=== PATIENT | male | born 1935 | race Caucasian/White ===

== ENCOUNTER → 2016-12-12 | Outpatient (CLI) | payer MEDICARE ==
--- NOTE | 2016-12-12 12:16 | MR ---
EXAMINATION TYPE: MR knee RT wo con DATE OF EXAM: 12/12/2016 COMPARISON: Plain film 10/23/2016 HISTORY: rt knee pain TECHNIQUE: Multiplanar, multisequence imaging of the right knee is performed without IV contrast. FINDINGS: MEDIAL MENISCUS: Posterior horn of the medial meniscus shows abnormal increased signal which is somew hat diffuse, stellate increased signal extends to the articular surface compatible with complex tear. LATERAL MENISCUS: Anterior and posterior horns are intact without tear. CRUCIATE LIGAMENTS: Anterior cruciate ligament shows abnormal thickening and associated fluid signal suggestive of possible arterial degenerative tear or possibly even ganglion formation COLLATERAL LIGAMENTS: The medial collateral ligament and lateral collateral ligament complex are inta ct and unremarkable. EXTENSOR MECHANISM: Visualized quadriceps and patellar tendons are intact. EFFUSION: No significant suprapatellar joint effusion. POPLITEAL CYST: A small semimembranosus gastrocnemius cyst is subcentimeter in size. TRICOMPARTMENT SPACES: There is joint space loss in the medial compartment. 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 Gra de 2 to grade III chondromalacia present in the lateral compartment and grade II chondromalacia poste rior patella. BONE MARROW SIGNAL: Subchondral geode formation, reactive marrow edema present in the proximal medial tibia greater than the medial femoral condyle OTHER: No additional significant abnormality is appreciated. IMPRESSION: Osteoarthritis. Complex tear posterior horn medial meniscus may be degenerative. Findings in the ante rior cruciate ligament suggests at least a partial tear, there is abnormal thickening, possible gangl ion cyst formation.
== END ==
LOC: RADMRIMAIN 09:58
PROVIDERS: ATTEND Orthopaedic Surgery
DX: M23.221 Derangement of posterior horn of medial meniscus due to old tear or injury, right knee (principal)

== ENCOUNTER 2017-05-08 14:38 | Emergency (ER) | payer MEDICARE ==
[2017-05-08 14:57] VITALS: BP 154/72; PULSE 63; TEMP 96.9
--- NOTE | 2017-05-08 16:41 | ED ---
General Adult HPI - General Chief complaint: Skin/Abscess/Foreign Body Stated complaint: Poss infection Braun/Post Op Time Seen by Provider: 05/08/17 16:01 Source: patient, RN notes reviewed Mode of arrival: ambulatory Limitations: no limitations - History of Present Illness Initial comments: Patient is 82-year-old male who presents emergency room today with a chief complaint of possible infection to right lower leg. 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 He does admit that over the last 2 days she's noticed some redness and swelling and some increased pain to the area. Patient does mother has a follow-up coming up in 3 days but thought that he should not wait till then to have it checked. Patient denies any other complaints or symptoms at this time. Patient denies any recent fever, chills, shortness of breath, chest pain, back pain, abdominal pain, nausea or vomiting, numbness or tingling, dysuria or hematuria, constipation or diarrhea, headaches or visual changes, or any other complaints. - Related Data Home Medications Medication Instructions Recorded Confirmed Atorvastatin [Lipitor] 80 mg PO HS 05/08/17 05/08/17 Chromium Picolinate 200 mcg PO DAILY 05/08/17 05/08/17 Empagliflozin [Jardiance] 10 mg PO DAILY 05/08/17 05/08/17 Finasteride [Proscar] 5 mg PO DAILY 05/08/17 05/08/17 Glimepiride [Amaryl] 2 mg PO BID 05/08/17 05/08/17 Hydrochlorothiazide 12.5 mg PO DAILY 05/08/17 05/08/17 Insulin Glargine,Hum.rec.anlog 28 unit SQ HS 05/08/17 05/08/17 [Lantus Solostar] Mupirocin 2% Oint [Bactroban 2% 1 applic TOPICAL BID 05/08/17 05/08/17 Oint] Silodosin [Rapaflo] 8 mg PO DAILY 05/08/17 05/08/17 Previous Rx's Medication Instructions Recorded Cephalexin [Keflex] 500 mg PO Q12HR 10 Days cap 05/08/17 Allergies Allergy/AdvReac Type Severity Reaction Status Date / Time lisinopril AdvReac Cough Verified 05/08/17 15:51 metformin AdvReac Nausea & Verified 05/08/17 15:51 Vomiting & Diarrhea Review of Systems ROS Statement: Those systems with pertinent positive or pertinent negative responses have been documented in the HPI. ROS Other: All systems not noted in ROS Statement are negative. Past Medical History Past Medical History: Cancer, COPD, CVA/TIA, Diabetes Mellitus, Hyperlipidemia, Hypertension, Osteoarthritis (OA) Additional Past Medical History / Comment(s): squamous cell cancer on right braun , stroke 2014, IBS History of Any Multi-Drug Resistant Organisms: None Reported Additional Past Surgical History / Comment(s): squamous cell cancer removal right braun, cataracts Past Psychological History: No Psychological Hx Reported Smoking Status: Former smoker Past Alcohol Use History: Rare Past Drug Use History: None Reported General Exam - General Exam Comments Initial Comments: General: The patient is awake and alert, in no distress, and does not appear acutely ill. Eye: Pupils are equal, round and reactive to light, extra-ocular movements are intact. No nystagmus. There is normal conjunctiva bilaterally. No signs of icterus. Ears, nose, mouth and throat: There are moist mucous membranes and no oral lesions. Neck: The neck is supple, there is no tenderness or JVD. Cardiovascular: There is a regular rate and rhythm. No murmur, rub or gallop is appreciated. Respiratory: Lungs are clear to auscultation, respirations are non-labored, breath sounds are equal. No wheezes, stridor, rales, or rhonchi. Musculoskeletal: Normal ROM, no tenderness. Strength 5/5. Sensation intact. Pulses equal bilaterally 2+. Neurological: A&O x 3. CN II-XII intact, There are no obvious motor or sensory deficits. Coordination appears grossly intact. Speech is normal. Skin: She does have a circular ulceration to the right lower braun. There is some local redness erythema surrounding this area. There is some faint redness coming up more proximally from this area. There is increased warmth and mild tenderness on exam. Psychiatric: Cooperative, appropriate mood & affect, normal judgment. Limitations: no limitations Course Vital Signs 05/08/17 14:52 Temperature 96.9 F L Pulse Rate 63 Respiratory 18 Rate Blood Pressure 154/72 O2 Sat by Pulse 95 Oximetry Medical Decision Making - Medical Decision Making Signs and symptoms of increasing worsening of infection were discussed in length with patient and his at bedside. At this time he saw on any oral antibiotic only a topical. He will be started on an oral antibiotic of Keflex to cover for a cellulitis. Advised close follow-up the family doctor over the next 2 days. Advised to return to the emergency room symptoms increase worsen or for any other concerns. Disposition Clinical Impression: Cellulitis Disposition: HOME SELF-CARE Condition: Good Instructions: Cellulitis (ED) Additional Instructions: Please use medication as discussed. Please follow-up with family doctor in the next 2 days of symptoms have not improved. Please return to emergency room if the symptoms increase or worsen or for any other concerns. Prescriptions: Cephalexin [Keflex] 500 mg PO Q12HR 10 Days cap Referrals: None,Stated [Primary Care Provider] - 1-2 days Time of Disposition: 16:40
[2017-05-08 17:02] VITALS: RESP 17
== END 2017-05-08 17:00 | disposition home or self-care (01) ==
LOC: EC 14:38
DX: L03.115 Cellulitis of right lower limb (principal); E11.9 Type 2 diabetes mellitus without complications; E78.5 Hyperlipidemia, unspecified; I10 Essential (primary) hypertension; M19.90 Unspecified osteoarthritis, unspecified site; K58.9 Irritable bowel syndrome, unspecified; J44.9 Chronic obstructive pulmonary disease, unspecified; Z86.73 Personal history of transient ischemic attack (TIA), and cerebral infarction without residual deficits; Z85.828 Personal history of other malignant neoplasm of skin; Z87.891 Personal history of nicotine dependence; Z79.4 Long term (current) use of insulin; Z79.899 Other long term (current) drug therapy; Z88.8 Allergy status to other drugs, medicaments and biological substances; Z98.890 Other specified postprocedural states
CPT/HCPCS: 99283

== ENCOUNTER 2019-04-24 00:09 | Emergency (ER) | payer MEDICARE ==
[2019-04-24 00:23] VITALS: PULSE 56; RESP 18; TEMP 97.9
--- NOTE | 2019-04-24 00:28 | ED ---
Recheck HPI - General Chief Complaint: Recheck/Abnormal Lab/Rx Stated Complaint: NOT FEELING WELL Time Seen by Provider: 04/24/19 00:27 Source: patient Mode of arrival: ambulatory Limitations: no limitations - History of Present Illness Initial Comments: Sreekanth is a pleasant 84 yo male who presents to the ER today for blood pressure check. Patient was previously on Losartan 25mg PO daily and HCTZ 12.5 PO daily, however his blood pressures were running low so last week his PCP discontinued his HCTZ. Patient and have been monitoring his BP 2x daily since then. Patient and report that his BP has been increasing over the past week, this evening his BP was 189/80 on their home cuff, they contacted the nurse call line who advised them to come to the ER. Patient denies any symptoms, he denies CP, SOB, Headache, Vision change. He did not take his evening dose of Losartan. - Related Data Home Medications Medication Instructions Recorded Confirmed Atorvastatin [Lipitor] 80 mg PO HS 05/08/17 05/08/17 Chromium Picolinate 200 mcg PO DAILY 05/08/17 05/08/17 Empagliflozin [Jardiance] 10 mg PO DAILY 05/08/17 05/08/17 Finasteride [Proscar] 5 mg PO DAILY 05/08/17 05/08/17 Glimepiride [Amaryl] 2 mg PO BID 05/08/17 05/08/17 Hydrochlorothiazide 12.5 mg PO DAILY 05/08/17 05/08/17 Insulin Glargine,Hum.rec.anlog 28 unit SQ HS 05/08/17 05/08/17 [Lantus Solostar] Mupirocin 2% Oint [Bactroban 2% 1 applic TOPICAL BID 05/08/17 05/08/17 Oint] Silodosin [Rapaflo] 8 mg PO DAILY 05/08/17 05/08/17 Previous Rx's Medication Instructions Recorded Cephalexin [Keflex] 500 mg PO Q12HR 10 Days cap 05/08/17 Allergies Allergy/AdvReac Type Severity Reaction Status Date / Time lisinopril AdvReac Cough Verified 04/24/19 00:22 metformin AdvReac Nausea & Verified 04/24/19 00:22 Vomiting & Diarrhea Review of Systems ROS Statement: Those systems with pertinent positive or pertinent negative responses have been documented in the HPI. ROS Other: All systems not noted in ROS Statement are negative. Past Medical History Past Medical History: Cancer, COPD, CVA/TIA, Diabetes Mellitus, Hyperlipidemia, Hypertension, Osteoarthritis (OA) Additional Past Medical History / Comment(s): squamous cell cancer on right braun, stroke 2013, IBS History of Any Multi-Drug Resistant Organisms: None Reported Additional Past Surgical History / Comment(s): squamous cell cancer removal right braun, cataracts Past Psychological History: No Psychological Hx Reported Smoking Status: Former smoker Past Alcohol Use History: Rare Past Drug Use History: None Reported General Exam Limitations: no limitations Head exam: Present: atraumatic, normocephalic Eye exam: Present: normal appearance, PERRL ENT exam: Present: normal exam Neck exam: Present: normal inspection Respiratory exam: Present: normal lung sounds bilaterally. Absent: respiratory distress, wheezes, rales Cardiovascular Exam: Present: regular rate, normal rhythm GI/Abdominal exam: Present: soft. Absent: distended Rectal exam: Present: deferred Extremities exam: Present: normal inspection, full ROM Back exam: Present: normal inspection Neurological exam: Present: alert, oriented X3, CN II-XII intact, normal gait Psychiatric exam: Present: normal affect, normal mood Skin exam: Present: warm, dry, intact Course Vital Signs 04/24/19 04/24/19 00:19 00:56 Temperature 97.9 F Pulse Rate 56 L Respiratory 18 Rate Blood Pressure 144/66 171/77 O2 Sat by Pulse 96 Oximetry Medical Decision Making - Medical Decision Making The patient was seen and evaluated, history obtained from patient and . Patient recently taken off medication, now has increasing asymptomatic BP BP on arrival has normalized, patient has not taken his nightly medication. Checked BP with patients home cuff and cuff at bedside, patient remains only mildly hypertensive. I recommended taking nightly medication, resuming HCTZ for the next 2 days and contact PCP thursday for further recommendations. Patient and agreeable to this plan, plan was written in discharge instruction. All questions pertaining to care were answered, return parameters discussed in detail, patient remained asymptomatic and was discharged home in stable condition. Disposition Clinical Impression: HTN (hypertension) Disposition: HOME SELF-CARE Condition: Stable Additional Instructions: Take your nightly medications before going to bed tonight Resume your HCTZ tomorrow morning Call your primary doctor Thursday to discuss taking your HCTZ Return to the ER if your BP is >180/110 or you experience any headache, vision change, chest pain, shortness of breath or any new or concerning symptoms Is patient prescribed a controlled substance at d/c from ED?: No Referrals: Nonstaff,Physician [Primary Care Provider] - 1-2 days
[2019-04-24 00:58] VITALS: BP 171/77
== END 2019-04-24 00:56 | disposition home or self-care (01) ==
LOC: EC 00:09 → SUPCPDRO 00:09 → EC 00:56
DX: I10 Essential (primary) hypertension (principal); E78.5 Hyperlipidemia, unspecified; E11.9 Type 2 diabetes mellitus without complications; J44.9 Chronic obstructive pulmonary disease, unspecified; Z79.899 Other long term (current) drug therapy; Z79.4 Long term (current) use of insulin; Z88.8 Allergy status to other drugs, medicaments and biological substances; Z87.891 Personal history of nicotine dependence; Z86.73 Personal history of transient ischemic attack (TIA), and cerebral infarction without residual deficits
CPT/HCPCS: 99283

== ENCOUNTER 2020-03-30 13:55 | Emergency (ER) | payer MEDICARE ==
[2020-03-30 14:12] VITALS: TEMP 98.2
[2020-03-30] MEDS ORDERED: SODIUM CHLORIDE 0.9% 500 ML 500 ML IV ONE (14:32)
--- NOTE | 2020-03-30 14:45 | ED ---
General Adult HPI - General Chief complaint: Recheck/Abnormal Lab/Rx Stated complaint: Abn Labs Time Seen by Provider: 03/30/20 14:28 Source: patient, family Mode of arrival: wheelchair Limitations: physical limitation - History of Present Illness Initial comments: 85-year-old male patient with past medical history significant for hypertension, hyperlipidemia, diabetes, CVA, COPD, currently diagnosed with lung cancer receiving radiation presents to the emergency department today after having abnormal labs. He had blood drawn yesterday and had a result of potassium at 6.9. His physician sent him here for lab redraw and further evaluation. Patient states he is feeling well. Denies any chest pain, shortness of breath, palpitations, or irregular heartbeat. Denies any muscle cramping or weakness. Denies ever having issues with potassium in the past. Patient denies any recent rash, fever, chills, cough, abdominal pain, nausea, vomiting, diarrhea, constipation, back pain, numbness, tingling, dizziness, hematuria, dysuria, urinary urgency, urinary frequency, headache, visual changes, or any other complaints. - Related Data Home Medications Medication Instructions Recorded Confirmed Atorvastatin [Lipitor] 80 mg PO HS 05/08/17 05/08/17 Chromium Picolinate 200 mcg PO DAILY 05/08/17 05/08/17 Empagliflozin [Jardiance] 10 mg PO DAILY 05/08/17 05/08/17 Finasteride [Proscar] 5 mg PO DAILY 05/08/17 05/08/17 Glimepiride [Amaryl] 2 mg PO BID 05/08/17 05/08/17 Hydrochlorothiazide 12.5 mg PO DAILY 05/08/17 05/08/17 [hydroCHLOROthiazide] Insulin Glargine,Hum.rec.anlog 28 unit SQ HS 05/08/17 05/08/17 [Lantus Solostar] Mupirocin 2% Oint [Bactroban 2% 1 applic TOPICAL BID 05/08/17 05/08/17 Oint] Silodosin [Rapaflo] 8 mg PO DAILY 05/08/17 05/08/17 Previous Rx's Medication Instructions Recorded Cephalexin [Keflex] 500 mg PO Q12HR 10 Days cap 05/08/17 Allergies Allergy/AdvReac Type Severity Reaction Status Date / Time lisinopril AdvReac Cough Verified 03/30/20 14:12 metformin AdvReac Nausea & Verified 03/30/20 14:12 Vomiting & Diarrhea Review of Systems ROS Statement: Those systems with pertinent positive or pertinent negative responses have been documented in the HPI. ROS Other: All systems not noted in ROS Statement are negative. Past Medical History Past Medical History: Cancer, COPD, CVA/TIA, Diabetes Mellitus, Hyperlipidemia, Hypertension, Osteoarthritis (OA) Additional Past Medical History / Comment(s): squamous cell cancer on right braun, stroke 2014, IBS History of Any Multi-Drug Resistant Organisms: None Reported Additional Past Surgical History / Comment(s): squamous cell cancer removal right braun, cataracts Past Psychological History: No Psychological Hx Reported Smoking Status: Never smoker Past Alcohol Use History: Rare Past Drug Use History: None Reported General Exam Limitations: physical limitation General appearance: alert, in no apparent distress, other (Physical well- developed, well-nourished adult male patient in no acute distress. Vital signs upon presentation are temperature 98.2F, pulse 80, respirations 20, blood pressure 98/56, pulse ox 97% on room air.) Respiratory exam: Present: normal lung sounds bilaterally. Absent: respiratory distress, wheezes, rales, rhonchi, stridor Cardiovascular Exam: Present: regular rate, normal rhythm, normal heart sounds. Absent: systolic murmur, diastolic murmur, rubs, gallop, clicks GI/Abdominal exam: Present: soft, normal bowel sounds. Absent: distended, tenderness, guarding, rebound, rigid Neurological exam: Present: alert, oriented X3, CN II-XII intact Psychiatric exam: Present: normal affect, normal mood Skin exam: Present: warm, dry, intact, normal color, rash (There is a scabbed rash noted over the upper back, the chest, no surrounding erythema, no purulent drainage.) Course Vital Signs 03/30/20 03/30/20 03/30/20 14:09 15:04 15:46 Temperature 98.2 F 98.2 F Pulse Rate 80 69 69 Respiratory 20 18 18 Rate Blood Pressure 98/56 109/61 116/69 O2 Sat by Pulse 97 96 96 Oximetry EKG Findings - EKG Comments: EKG Findings:: EKG obtained at 1442 shows 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 Ventricular rate is 70, P return of a 184, QRS duration 92, QT 394, QTC 425. No evidence of ST elevation or depression. No previous EKGs available for comparison. Medical Decision Making - Medical Decision Making 85-year-old male patient with current diagnosis of lung cancer receiving radiation had outpatient labs performed yesterday and had elevated potassium level at 6.9. He was sent here for redraw. We did draw his blood, his potassium level today is 3.4, all other labs are unremarkable. He'll be discharged to follow with his current home care regimen instructed to follow-up with his primary care physician for recheck in 1-2 days. Return parameters were discussed in detail. He verbalizes understanding and agrees with this plan. - Lab Data Result diagrams: 03/30/20 14:40 03/30/20 14:40 Lab Results 03/30/20 03/30/20 Range/Units 14:40 14:40 WBC 9.9 (3.8-10.6) k/uL RBC 4.61 (4.30-5.90) m/uL Hgb 13.6 (13.0-17.5) gm/dL Hct 41.0 (39.0-53.0) % MCV 88.9 (80.0-100.0) fL MCH 29.5 (25.0-35.0) pg MCHC 33.2 (31.0-37.0) g/dL RDW 14.4 (11.5-15.5) % Plt Count 296 (150-450) k/uL Neutrophils % 77 % Lymphocytes % 9 % Monocytes % 8 % Eosinophils % 4 % Basophils % 0 % Neutrophils # 7.6 (1.3-7.7) k/uL Lymphocytes # 0.9 L (1.0-4.8) k/uL Monocytes # 0.8 (0-1.0) k/uL Eosinophils # 0.4 (0-0.7) k/uL Basophils # 0.0 (0-0.2) k/uL Sodium 137 (137-145) mmol/L Potassium 4.3 (3.5-5.1) mmol/L Chloride 106 (98-107) mmol/L Carbon Dioxide 25 (22-30) mmol/L Anion Gap 6 mmol/L BUN 17 (9-20) mg/dL Creatinine 0.96 (0.66-1.25) mg/dL Est GFR (CKD-EPI)AfAm 84 (>60 ml/min/1.73 sqM) Est GFR (CKD-EPI)NonAf 73 (>60 ml/min/1.73 sqM) Glucose 126 H (74-99) mg/dL Calcium 8.5 (8.4-10.2) mg/dL Magnesium 2.2 (1.6-2.3) mg/dL Total Bilirubin 0.5 (0.2-1.3) mg/dL AST 44 (17-59) U/L ALT 43 (4-49) U/L Alkaline Phosphatase 158 H (38-126) U/L Total Protein 5.9 L (6.3-8.2) g/dL Albumin 2.6 L (3.5-5.0) g/dL Disposition Clinical Impression: Feared condition not demonstrated Disposition: HOME SELF-CARE Condition: Good Additional Instructions: Follow up with your primary care physician for recheck in 1-2 days. Return to the emergency department for any new, worsening, or concerning symptoms. Is patient prescribed a controlled substance at d/c from ED?: No Referrals: Nonstaff,Physician [Primary Care Provider] - 1-2 days Time of Disposition: 15:20
[2020-03-30 14:50] LABS: Basophils % (A) 0 %; Eosinophils # (A) 0.4 k/uL (0-0.7); Eosinophils % (A) 4 %; HGB 13.6 gm/dL (13.0-17.5); Lymphocytes # (A) 0.9 k/uL (1.0-4.8); Lymphocytes % (A) 9 %; MCH 29.5 pg (25.0-35.0); MCHC 33.2 g/dL (31.0-37.0); MCV 88.9 fL (80.0-100.0); Monocytes # (A) 0.8 k/uL (0-1.0); Monocytes % (A) 8 %; Neutrophils # (A) 7.6 k/uL (1.3-7.7); Neutrophils % (A) 77 %; Platelet Count 296 k/uL (150-450); RBC 4.61 m/uL (4.30-5.90); RDW 14.4 % (11.5-15.5); WBC 9.9 k/uL (3.8-10.6)
[2020-03-30 14:58] LABS: Albumin 2.6 g/dL (3.5-5.0); Calcium 8.5 mg/dL (8.4-10.2); Magnesium 2.2 mg/dL (1.6-2.3); Potassium 4.3 mmol/L (3.5-5.1); Total Bilirubin 0.5 mg/dL (0.2-1.3); Total Protein 5.9 g/dL (6.3-8.2)
[2020-03-30 15:05] VITALS: PULSE 69; RESP 18
[2020-03-30 15:46] VITALS: BP 116/69
== END 2020-03-30 15:48 | disposition home or self-care (01) ==
LOC: EC 13:55
DX: Z71.1 Person with feared health complaint in whom no diagnosis is made (principal); E11.36 Type 2 diabetes mellitus with diabetic cataract; I10 Essential (primary) hypertension; E78.5 Hyperlipidemia, unspecified; J44.9 Chronic obstructive pulmonary disease, unspecified; Z79.4 Long term (current) use of insulin; Z79.899 Other long term (current) drug therapy; Z88.8 Allergy status to other drugs, medicaments and biological substances; Z86.73 Personal history of transient ischemic attack (TIA), and cerebral infarction without residual deficits
CPT/HCPCS: 36415; 80048; 80053; 80076; 83735; 85025; 93005; 96360; 99283

== ENCOUNTER 2020-04-27 00:40 | Inpatient (IN) | payer MEDICARE ==
[2020-04-27] MEDS ORDERED: ADENOSINE 3 MG/ML 2 ML VIAL IVP STA (00:48)
--- NOTE | 2020-04-27 00:49 | ED ---
Arrhythmia/Palpitations HPI - General Chief Complaint: Arrhythmia/Palpitations Stated Complaint: SVT Time Seen by Provider: 04/27/20 00:48 Source: patient, EMS Mode of arrival: EMS Limitations: no limitations - History of Present Illness Initial Comments: this patient is an 85-year-old man brought to be evaluated for tachycardia. The patient not able to give much history related to the complaint, he states that his called EMS. The EMS personnel report that they were called becausehis blood pressure been checked at home and it was low, 80/50. The patient denies complaints stating that he feelsokay. He denies chest or abdominal pain, nodysp gladys, no nausea or vomiting. EMS found the patient to be in what appeared to be SVT with a rate approximately 160. They did give him 2 doses of adenosine, 6 mg, then 12 mg, which did briefly slow the rhythm but it resumed SVT. -: unknown Associated Symptoms: denies other symptoms Treatments Prior to Arrival: adenosine - Related Data Home Medications Medication Instructions Recorded Confirmed Atorvastatin [Lipitor] 80 mg PO HS 05/08/17 05/08/17 Chromium Picolinate 200 mcg PO DAILY 05/08/17 05/08/17 Empagliflozin [Jardiance] 10 mg PO DAILY 05/08/17 05/08/17 Finasteride [Proscar] 5 mg PO DAILY 05/08/17 05/08/17 Glimepiride [Amaryl] 2 mg PO BID 05/08/17 05/08/17 Hydrochlorothiazide 12.5 mg PO DAILY 05/08/17 05/08/17 [hydroCHLOROthiazide] Insulin Glargine,Hum.rec.anlog 28 unit SQ HS 05/08/17 05/08/17 [Lantus Solostar] Mupirocin 2% Oint [Bactroban 2% 1 applic TOPICAL BID 05/08/17 05/08/17 Oint] Silodosin [Rapaflo] 8 mg PO DAILY 05/08/17 05/08/17 Previous Rx's Medication Instructions Recorded Cephalexin [Keflex] 500 mg PO Q12HR 10 Days cap 05/08/17 Allergies Allergy/AdvReac Type Severity Reaction Status Date / Time lisinopril AdvReac Cough Verified 03/30/20 14:12 metformin AdvReac Nausea & Verified 03/30/20 14:12 Vomiting & Diarrhea Review of Systems ROS Statement: Those systems with pertinent positive or pertinent negative responses have been documented in the HPI. ROS Other: All systems not noted in ROS Statement are negative. 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 Absent: scleral icterus, conjunctival injection ENT exam: Present: mucous membranes dry Neck exam: Present: normal inspection Respiratory exam: Present: normal lung sounds bilaterally. Absent: respiratory distress, wheezes, rales, rhonchi, stridor Cardiovascular Exam: Present: tachycardia, normal heart sounds. Absent: systolic murmur, diastolic murmur, rubs, gallop GI/Abdominal exam: Present: soft. Absent: distended, tenderness, guarding, rebound, rigid, mass Extremities exam: Present: normal inspection, normal capillary refill. Absent: pedal edema, calf tenderness Back exam: Present: normal inspection. Absent: CVA tenderness (R), CVA tenderness (L) Neurological exam: Present: alert Skin exam: Present: warm, dry, intact, normal color. Absent: rash Course Vital Signs 04/27/20 04/27/20 04/27/20 00:41 00:53 00:58 Temperature 98.0 F Pulse Rate 160 H 145 H Pulse Rate [ 156 H Insurance Clerk ] Respiratory 16 18 Rate Blood Pressure 97/65 80/58 O2 Sat by Pulse 94 L 99 Oximetry 04/27/20 04/27/20 04/27/20 01:38 01:50 02:40 Temperature Pulse Rate 110 H 110 H 109 H Pulse Rate [ Insurance Clerk ] Respiratory 16 18 16 Rate Blood Pressure 90/67 113/73 87/61 O2 Sat by Pulse 100 96 Oximetry 04/27/20 03:10 Temperature Pulse Rate 96 Pulse Rate [ Insurance Clerk ] Respiratory 18 Rate Blood Pressure 112/69 O2 Sat by Pulse 97 Oximetry EKG Findings - EKG Results: EKG: interpreted by ERMD, normal QRS, normal ST/T EKG shows: tachycardia (supraventricular tachycardia rate 157) - Blocks, [place], Hypertrophy, ST Abn: QRS axis and voltage: left axis deviation (-30 to -90) Medical Decision Making - Medical Decision Making this patient is an 85-year-old man brought by EMS to be evaluated after he was found to have hypotension at home. 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 Had been found to be septic in March presumably due to pneumonia and also found to havepulmonary embolism at that time. The patient is currently maintained on Lovenox. Patient's SVT has resolved here after medication and fluids. Chest x-ray does reveal pattern that may be consistent with lung cancer versus possible infil trate. The patient has been coughing some thick sputum, per His , therefore will have dose of antibiotic and further workup. - Lab Data Result diagrams: 04/27/20 01:05 04/27/20 01:05 Lab Results 04/27/20 04/27/20 04/27/20 Range/Units 01:05 01:05 01:05 WBC 10.7 H (3.8-10.6) k/uL RBC 4.49 (4.30-5.90) m/uL Hgb 13.1 (13.0-17.5) gm/dL Hct 40.8 (39.0-53.0) % MCV 90.8 (80.0-100.0) fL MCH 29.1 (25.0-35.0) pg MCHC 32.1 (31.0-37.0) g/dL RDW 17.7 H (11.5-15.5) % Plt Count 323 (150-450) k/uL MPV 8.3 Neutrophils % 75 % Lymphocytes % 9 % Monocytes % 9 % Eosinophils % 4 % Basophils % 0 % Neutrophils # 8.0 H (1.3-7.7) k/uL Lymphocytes # 1.0 (1.0-4.8) k/uL Monocytes # 1.0 (0-1.0) k/uL Eosinophils # 0.4 (0-0.7) k/uL Basophils # 0.1 (0-0.2) k/uL Anisocytosis Slight PT 10.1 (9.0-12.0) sec INR 1.0 (<1.2) APTT 29.8 (22.0-30.0) sec Sodium 134 L (137-145) mmol/L Potassium 4.3 (3.5-5.1) mmol/L Chloride 107 (98-107) mmol/L Carbon Dioxide 21 L (22-30) mmol/L Anion Gap 6 mmol/L BUN 16 (9-20) mg/dL Creatinine 1.19 (0.66-1.25) mg/dL Est GFR (CKD-EPI)AfAm 65 (>60 ml/min/1.73 sqM) Est GFR (CKD-EPI)NonAf 56 (>60 ml/min/1.73 sqM) Glucose 204 H (74-99) mg/dL Calcium 8.3 L (8.4-10.2) mg/dL Magnesium 1.8 (1.6-2.3) mg/dL Total Bilirubin 0.6 (0.2-1.3) mg/dL AST 106 H (17-59) U/L ALT 180 H (4-49) U/L Alkaline Phosphatase 290 H (38-126) U/L Troponin I (0.000-0.034) ng/mL Total Protein 6.0 L (6.3-8.2) g/dL Albumin 2.8 L (3.5-5.0) g/dL TSH 7.410 H (0.465-4.680) mIU/L 04/27/20 Range/Units 01:05 WBC (3.8-10.6) k/uL RBC (4.30-5.90) m/uL Hgb (13.0-17.5) gm/dL Hct (39.0-53.0) % MCV (80.0-100.0) fL MCH (25.0-35.0) pg MCHC (31.0-37.0) g/dL RDW (11.5-15.5) % Plt Count (150-450) k/uL MPV Neutrophils % % Lymphocytes % % Monocytes % % Eosinophils % % Basophils % % Neutrophils # (1.3-7.7) k/uL Lymphocytes # (1.0-4.8) k/uL Monocytes # (0-1.0) k/uL Eosinophils # (0-0.7) k/uL Basophils # (0-0.2) k/uL Anisocytosis PT (9.0-12.0) sec INR (<1.2) APTT (22.0-30.0) sec Sodium (137-145) mmol/L Potassium (3.5-5.1) mmol/L Chloride (98-107) mmol/L Carbon Dioxide (22-30) mmol/L Anion Gap mmol/L BUN (9-20) mg/dL Creatinine (0.66-1.25) mg/dL Est GFR (CKD-EPI)AfAm (>60 ml/min/1.73 sqM) Est GFR (CKD-EPI)NonAf (>60 ml/min/1.73 sqM) Glucose (74-99) mg/dL Calcium (8.4-10.2) mg/dL Magnesium (1.6-2.3) mg/dL Total Bilirubin (0.2-1.3) mg/dL AST (17-59) U/L ALT (4-49) U/L Alkaline Phosphatase (38-126) U/L Troponin I 0.022 (0.000-0.034) ng/mL Total Protein (6.3-8.2) g/dL Albumin (3.5-5.0) g/dL TSH (0.465-4.680) mIU/L Disposition Clinical Impression: Supraventricular tachycardia, Lung cancer Narrative: suspected pneumonia Disposition: ADMITTED IP TO THIS HOSP Condition: Fair Referrals: Nonstaff,Physician [Primary Care Provider] - 1-2 days
[2020-04-27] MEDS ORDERED: LORazepam 2 MG/ML INJ IV STA (00:58)
[2020-04-27] MEDS ORDERED: SODIUM CHLORIDE 0.9% 500 ML 500 ML IV STA (00:58)
--- NOTE | 2020-04-27 01:31 | XR ---
EXAM: XR Chest, 1 View CLINICAL HISTORY: ITS.REASON XR Reason: dysrhythmia TECHNIQUE: Frontal view of the chest. COMPARISON: No relevant prior studies available. FINDINGS: Lungs: Diffuse airspace opacities concerning for an infectious process. Pleural space: Probable small bilateral pleural effusions. Heart: Unremarkable. Mediastinum: Unremarkable. Bones/joints: Unremarkable. IMPRESSION: 1. Diffuse airspace opacities concerning for an infectious process. 2. Probable small bilateral pleural effusions.
[2020-04-27 01:34] LABS: Albumin 2.8 g/dL (3.5-5.0); Calcium 8.3 mg/dL (8.4-10.2); Magnesium 1.8 mg/dL (1.6-2.3); Potassium 4.3 mmol/L (3.5-5.1); Total Bilirubin 0.6 mg/dL (0.2-1.3)
[2020-04-27 01:36] LABS: Partial Thromboplastin Time 29.8 sec (22.0-30.0); Prothrombin Time 10.1 sec (9.0-12.0)
[2020-04-27] MEDS ORDERED: PIPERACILLIN-TAZOBACTAM 3.375 GM in SODIUM CHLORIDE 0.9% 100 ML IVPB STA (01:36)
[2020-04-27 01:37] LABS: Anisocytosis Slight; Basophils # (A) 0.1 k/uL (0-0.2); Basophils % (A) 0 %; Eosinophils # (A) 0.4 k/uL (0-0.7); Eosinophils % (A) 4 %; HCT 40.8 % (39.0-53.0); HGB 13.1 gm/dL (13.0-17.5); Lymphocytes % (A) 9 %; MCH 29.1 pg (25.0-35.0); MCHC 32.1 g/dL (31.0-37.0); MCV 90.8 fL (80.0-100.0); Mean Platelet Volume 8.3; Monocytes % (A) 9 %; Neutrophils % (A) 75 %; Platelet Count 323 k/uL (150-450); RBC 4.49 m/uL (4.30-5.90); RDW 17.7 % (11.5-15.5); WBC 10.7 k/uL (3.8-10.6)
[2020-04-27] MEDS ORDERED: PNEUMONIA PROTOCOL UTILIZED 1 EACH MISC PO PRN (03:00)
[2020-04-27] MEDS: ENOXAPARIN 80 MG/0.8 ML SYRINGE SQ SCH ×2 (04:18→17:48)
[2020-04-27 06:20] LABS: Appearance,Urine Clear (Clear); Bilirubin,Urine Negative (Negative); Blood,Urine Trace (Negative); Color,Urine Yellow; Glucose,Urine (UA) Negative (Negative); Hyaline Casts,Urine 14 /lpf (0-2); Ketones,Urine Negative (Negative); Leukocyte Esterase,Urine Negative (Negative); Mucus,Urine Rare /hpf; Nitrite,Urine Negative (Negative); Protein,Urine Negative (Negative); RBC,Urine 1 /hpf (0-5); Specific Gravity,Urine 1.016 (1.001-1.035); Urobilinogen,Urine <2.0 mg/dL (<2.0); WBC,Urine 1 /hpf (0-5)
--- NOTE | 2020-04-27 06:47 | P.HPIM ---
History of Present Illness H&P Date: 04/27/20 Chief Complaint: hypotension, SVT 85 year old male with diabetes, hypertension Patient is a poor historian due to memory issues. Family is not available at this time for further history taking. History obtained by talking to the patient and reviewing medical records and talking to the ER doctor. Seems like the patient was at home at his baseline status of health has been complaining of some episodes of dizziness over the past few days however today while checking his blood pressure was found to be low with systolic in the 80s for which the called EMS who found that the patient was with tachycardia and brought him to the hospital for evaluation EKG showed SVT he was given 2 doses of adenosine and was converted to sinus rhythm. Otherwise. Patient currently denies any dizziness lightheadedness denies any chest pain or trouble breathing he denies any fevers or chills. He does not recall recent hospitalization for pneumonia which the as mentioned, as patient was admitted for sepsis with pneumonia about a month ago to [facility] where he normally gets his care. There is no report of any hemoptysis however he is currently having some mild cough productive of greenish thick sputum. Patient also been diagnosed recently with PE and he is currently on Lovenox he denies any GI bleeding. Denies any abdominal pain nausea or vomiting He also mentions some left hip discomfort upon ambulation denies any trauma falls or injuries to the hip. Patient chest x-ray showed some infiltrates could be related to cancer however pneumonia could not be ruled out patient was given a dose of antibiotic in the ED and was admitted for further care and monitoring Blood work showed slightly elevated white count with left shift and, elevated TSH with elevated liver enzymes The patient is talkative seems to be in very good spirit currently denies any complaints Review of Systems Pertinent positives as noted in HPI. 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, stroke 2014, IBS History of Any Multi-Drug Resistant Organisms: None Reported Additional Past Surgical History / Comment(s): squamous cell cancer removal right braun, cataracts Past Psychological History: No Psychological Hx Reported Smoking Status: Never smoker Past Alcohol Use History: Rare Past Drug Use History: None Reported Medications and Allergies Home Medications Medication Instructions Recorded Confirmed Type Atorvastatin [Lipitor] 80 mg PO HS 05/08/17 05/08/17 History Finasteride [Proscar] 5 mg PO DAILY 05/08/17 05/08/17 History Insulin Glargine,Hum.rec.anlog 28 unit SQ HS 05/08/17 05/08/17 History [Lantus Solostar] Albuterol Inhaler [Ventolin Hfa 2 puff INHALATION RT-Q4H PRN 04/27/20 04/27/20 History Inhaler] Aspirin EC [Ecotrin Low Dose] 81 mg PO DAILY 04/27/20 04/27/20 History Benzonatate [Tessalon Perles] 100 mg PO TID PRN 04/27/20 04/27/20 History Cholecalciferol [Vitamin D3] 400 unit PO DAILY 04/27/20 04/27/20 History Enoxaparin [Lovenox] 80 mg SQ Q12H 04/27/20 04/27/20 History Galantamine HBr [Razadyne ER] 24 mg PO W/BRKFST 04/27/20 04/27/20 History Multivit-Min/FA/Lycopen/Lutein 1 tab PO DAILY 04/27/20 04/27/20 History [Centrum Silver Tablet] Tiotropium 18 Mcg/Puff [Spiriva] 2 cap INHALATION RT-DAILY 04/27/20 04/27/20 History Vit C/E/Zn/Coppr/Lutein/Zeaxan 1 cap PO BID 04/27/20 04/27/20 History [Preservision Areds 2 Softgel] Allergies Allergy/AdvReac Type Severity Reaction Status Date / Time lisinopril AdvReac Cough Verified 04/27/20 06:18 metformin AdvReac Nausea & Verified 04/27/20 06:18 Vomiting & Diarrhea Physical Exam Vitals: Vital Signs Temp Pulse Pulse Resp BP Pulse Ox 04/27/20 05:00 75 23 113/64 04/27/20 04:10 87 16 106/60 100 04/27/20 04:00 82 22 90/48 100 04/27/20 03:30 91 30 H 112/69 99 04/27/20 03:10 96 18 112/69 97 04/27/20 02:40 109 H 16 87/61 96 04/27/20 01:50 110 H 18 113/73 04/27/20 01:38 110 H 16 90/67 100 04/27/20 00:58 156 H 04/27/20 00:53 145 H 18 80/58 99 04/27/20 00:41 98.0 F 160 H 16 97/65 94 L Intake and Output 04/26/20 04/26/20 04/27/20 14:59 22:59 06:59 Other: Weight 83.915 kg Constitutional: No acute distress, conversant, pleasant Eyes: Anicteric sclerae, moist conjunctiva, Pupils equal round reactive to light ENMT: NC/AT Oropharynx clear, no erythema, or exudates Neck: Supple, FROM, no masses, or JVD No carotid bruits No thyromegaly Lungs: Good breath sounds bilaterally no wheezing or rhonchi Clear to percussion Normal respiratory effort, no accessory muscle use Tattoos of the chest indicating site of radiation therapy Cardiovascular: Heart regular in rate and rhythm, No murmurs, gallops, or rubs No peripheral edema Abdominal: Soft Nontender, no guarding, rebound or rigidity Abdomen moving with respiration Normoactive bowel sounds No hepatomegaly, No splenomegaly No palpable mass Epigastric abdominal hernia soft and reducible Skin: Normal temperature, tone, texture, turgor No induration No subcutaneous nodules No rash, lesions No ulcers Extremities: No digital cyanosis No clubbing Pedal pulses intact and symmetrical Radial pulses intact and symmetrical No calf tenderness Psychiatric: Alert and oriented to person, place . Appropriate affect fair judgement Neuro Muscles Strength 4/5 in all 4 extremities Sensation to light touch grossly present throughout Cranial nerves II-XII grossly intact No focal sensory deficits Lymphatics: no palpable cervical or supraclavicular , or inguinal lymph nodes Results CBC & Chem 7: 04/27/20 01:05 04/27/20 01:05 Labs: Abnormal Lab Results - Last 24 Hours (Table) 04/27/20 04/27/20 Range/Units 01:05 01:05 WBC 10.7 H (3.8-10.6) k/uL RDW 17.7 H (11.5-15.5) % Neutrophils # 8.0 H (1.3-7.7) k/uL Sodium 134 L (137-145) mmol/L Carbon Dioxide 21 L (22-30) mmol/L Glucose 204 H (74-99) mg/dL Calcium 8.3 L (8.4-10.2) mg/dL AST 106 H (17-59) U/L ALT 180 H (4-49) U/L Alkaline Phosphatase 290 H (38-126) U/L Total Protein 6.0 L (6.3-8.2) g/dL Albumin 2.8 L (3.5-5.0) g/dL TSH 7.410 H (0.465-4.680) mIU/L Assessment and Plan Assessment: Hypotension with supraventricular tachycardia currently in sinus rhythm status post adenosine 2 Elevated TSH check free T4 Possible underlying sepsis with pneumonia, follow-up cultures patient given dose of antibiotics will continue cardiology consult for SVT IV fluid hydration Recent diagnosis of PE continue with Lovenox 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 currently on active treatment Plan Follow-up cultures rule out pneumonia Continue with antibiotics Gentle IV fluid hydration Follow-up electrolytes, follow-up free T4 level Cardiology consult campus monitor Resume home medications for hypertension Insulin sliding scale for diabetes X-ray of the left hip due to patient complaining of pain upon ambulation Surrogate decision-maker: CODE STATUS: Full code DVT prophylaxis: On Lovenox for recent PE Discussed with: Patient, ER, RN Anticipated length of stay more than [address]: Home A total of 75 minutes was spent on the care of this complex patient more than 50% of the time was spent in counseling and care coordination.
--- NOTE | 2020-04-27 06:53 | P.HPADDEND ---
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 Patient telling me that he is not yet ready to give up this fight. He recognizes that he's been dealing with memory difficulties and his is taking care of everything at this time she is not available during this interview. Time spent: Total time spent face to face in education and discussion directly related to advanced care plannin minutes
[2020-04-27 08:09] LABS: Glucose,Whole Blood 113 mg/dL (75-99)
--- NOTE | 2020-04-27 08:38 | XR ---
EXAMINATION TYPE: XR Hip Limited LT DATE OF EXAM: 04/27/2020 COMPARISON: NONE HISTORY: Pain TECHNIQUE: One view is submitted FINDINGS: There is no evidence of erosive change or acute fracture. Vascular calcifications are noted. There is severe narrowing of the hip joint with hypertrophic spurring. IMPRESSION: 1. 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
[2020-04-27] MEDS ORDERED: GLIMEPIRIDE 2 MG TAB PO SCH (09:00)
[2020-04-27] MEDS ORDERED: NON FORMULARY DRUG (Empagliflozin [Jardiance] 10 MG Tablet) PO SCH (09:00)
[2020-04-27] MEDS: INSULIN ASPART (NovoLOG) 100 UNIT/ML VIAL SQ SCH ×4 (09:31→20:59)
[2020-04-27] MEDS: SILODOSIN 8 MG PO SCH (09:32)
[2020-04-27] MEDS: PIPERACILLIN-TAZOBACTAM 3.375 GM in SODIUM CHLORIDE 0.9% 100 ML IVPB SCH ×2 (09:42→17:49)
[2020-04-27] MEDS: BENZONATATE 100 MG CAP PO PRN ×2 (10:29→17:48)
[2020-04-27] MEDS: hydroCHLOROthiazide 12.5 MG CAP PO SCH (10:29)
[2020-04-27] MEDS: guaiFENesin 600 MG TABLET.ER PO SCH ×2 (10:29→20:59)
[2020-04-27] MEDS: FINASTERIDE 5 MG TAB PO SCH (10:29)
[2020-04-27] MEDS: MUPIROCIN 2% OINT 22 GM TUBE TOPICAL SCH ×2 (10:30→21:01)
[2020-04-27 11:49] LABS: Glucose,Whole Blood 133 mg/dL (75-99)
[2020-04-27 12:51] VITALS: RESP 18
--- NOTE | 2020-04-27 17:32 | P.PN ---
Subjective Progress Note Date: 04/27/20 (delayed charting seen at 0945) Principal diagnosis: dizziness Patient is an 85-year-old male with a history of stage IV lung cancer currently undergoing radiation therapy but no chemotherapy through [facility], diabetes, and hypertension who presented to the emergency department due to dizziness with fast heart rate and low blood pressure at home. In the ER he und erwent an extensive evaluation. Initial EKG showed SVT he was given 2 doses of adenosine and converted to normal sinus rhythm. Chest x-ray showed infiltrates which were felt to be related to pneumonia versus cancer. He was started on Zosyn. Laboratory analysis showed a white blood cell count of 10.7, states his white blood cell count is chronically elevated. AST 106, ALT 180, alkaline phosphatase 290, pro-calcitonin mildly elevated at 0.15, TSH 7.4 with normal T4. He was admitted for further evaluation with cardiology. He was also complaining of left hip pain and underwent an x-ray which showed severe arthritis. Patient seen and examined at bedside multiple times throughout the day with present. He denies any chest pain, dizziness, lightheadedness, shortness of breath, or hip pain. General: Ill-appearing, no distress, appears at stated age, temporal and buccal wasting Derm: warm, dry Head: atraumatic, normocephalic, symmetric Eyes: EOMI, no lid lag, anicteric sclera Mouth: no lip lesion, mucus membranes moist Cardiovascular: S1S2 reg, no murmur, positive posterior tibial pulse bilateral, Lungs: course bs bilateral , no accessory muscle use Abdominal: soft, nontender to palpation, no guarding, no appreciable organomegaly Ext: no gross muscle atrophy, no edema, no contractures Neuro: CN II-XI grossly intact, no focal neuro deficits Psych: Alert to self and intermittently alert to situation. SVT -Per this is his third time having SVT in the last 2 months and he has received adenosine every time -Continue with telemetry -Check echocardiogram -TSH elevated however T4 is normal -Cardiology recommendations Pneumonia versus lung cancer -Suspect that infiltrates seen on chest x-ray are related to known lung cancer -Continue with antibiotics for the time being -Pro-calcitonin mildly elevated -Await chest x-ray from [facility] and CT from [facility] for comparison -Monitor for pyrexia Lung cancer stage IV with known metastases to the brain and liver status post radiation -Continue outpatient follow-up Recent diagnosis of pulmonary embolism -Diagnosed 04/16/28 [facility] -Continue with Lovenox Mild cognitive impairment -Supportive care Diabetes mellitus mellitus type II -Continue with long-acting insulin, sliding scale, follow blood sugars, check A1c Chronic conditions: Dyslipidemia Hypertension COPD History of TIA IBS DVT prophylaxis: Lovenox Discussed with: Patient, , nursing Anticipated discharge: in 1-[address]: home A total of 65 minutes was spent on the care of this complex patient more than 50% of the time was spent in counseling and care coordination. Objective - Vital Signs Vital signs: Vital Signs Temp 97.8 F 04/27/20 12:01 Pulse 90 04/27/20 16:00 Resp 18 04/27/20 16:00 BP 129/60 04/27/20 16:00 Pulse Ox 94 L 04/27/20 16:00 Intake & Output 04/26/20 04/27/20 04/27/20 18:59 06:59 18:59 Intake Total 1030 Output Total 700 Balance 330 Weight 83.915 kg 83.915 kg Intake: IV 130 Invasive Line 1 30 Piperacillin-Tazobactam 3 100 .375 gm In Sodium Chloride 0.9% 100 ml @ 25 mls/hr IVPB Q8H [facility] Rx#: [id number] Oral 900 Output: Urine 700 Other: Voiding Method Urinal Diaper Incontinent - Labs CBC & Chem 7: 04/27/20 01:05 04/27/20 01:05 Labs: Abnormal Lab Results - Last 24 Hours (Table) 04/27/20 04/27/20 04/27/20 Range/Units 01:05 01:05 01:05 WBC 10.7 H (3.8-10.6) k/uL RDW 17.7 H (11.5-15.5) % Neutrophils # 8.0 H (1.3-7.7) k/uL Sodium 134 L (137-145) mmol/L Carbon Dioxide 21 L (22-30) mmol/L Glucose 204 H (74-99) mg/dL POC Glucose (mg/dL) (75-99) mg/dL Calcium 8.3 L (8.4-10.2) mg/dL AST 106 H (17-59) U/L ALT 180 H (4-49) U/L Alkaline Phosphatase 290 H (38-126) U/L Total Protein 6.0 L (6.3-8.2) g/dL Albumin 2.8 L (3.5-5.0) g/dL Procalcitonin (0.02-0.09) ng/mL TSH 7.410 H (0.465-4.680) mIU/L Urine Blood Trace H (Negative) Hyaline Casts 14 H (0-2) /lpf Urine Mucus Rare H (None) /hpf 04/27/20 04/27/20 04/27/20 Range/Units 01:05 08:07 11:48 WBC (3.8-10.6) k/uL RDW (11.5-15.5) % Neutrophils # (1.3-7.7) k/uL Sodium (137-145) mmol/L Carbon Dioxide (22-30) mmol/L Glucose (74-99) mg/dL POC Glucose (mg/dL) 113 H 133 H (75-99) mg/dL Calcium (8.4-10.2) mg/dL AST (17-59) U/L ALT (4-49) U/L Alkaline Phosphatase (38-126) U/L Total Protein (6.3-8.2) g/dL Albumin (3.5-5.0) g/dL Procalcitonin 0.15 H (0.02-0.09) ng/mL TSH (0.465-4.680) mIU/L Urine Blood (Negative) Hyaline Casts (0-2) /lpf Urine Mucus (None) /hpf
[2020-04-27 20:38] LABS: Glucose,Whole Blood 208 mg/dL (75-99)
[2020-04-27] MEDS ORDERED: INSULIN DETEMIR (LEVEMIR) 100 UNIT/ML SYR SQ SCH (21:00)
[2020-04-27] MEDS ORDERED: ATORVASTATIN 80 MG TAB PO SCH (21:00)
[2020-04-28] MEDS ORDERED: guaiFENesin-DM 100-10MG/5ML 10 ML CUP PO PRN (03:30)
[2020-04-28] MEDS: ENOXAPARIN 80 MG/0.8 ML SYRINGE SQ SCH ×2 (03:36→15:45)
[2020-04-28] MEDS: PIPERACILLIN-TAZOBACTAM 3.375 GM in SODIUM CHLORIDE 0.9% 100 ML IVPB SCH ×2 (03:36→09:00)
[2020-04-28 06:31] LABS: Glucose,Whole Blood 81 mg/dL (75-99)
[2020-04-28] MEDS: INSULIN ASPART (NovoLOG) 100 UNIT/ML VIAL SQ SCH ×2 (06:42→12:25)
[2020-04-28] MEDS ORDERED: TIOTROPIUM 18 MCG/PUFF INHALER INHALATION SCH (08:00)
[2020-04-28 08:32] LABS: Anisocytosis Slight; HCT 36.4 % (39.0-53.0); MCH 30.9 pg (25.0-35.0); MCV 93.6 fL (80.0-100.0); Mean Platelet Volume 7.7; Platelet Count 277 k/uL (150-450); RBC 3.89 m/uL (4.30-5.90); RDW 17.5 % (11.5-15.5); WBC 10.2 k/uL (3.8-10.6)
[2020-04-28 08:55] LABS: Albumin 2.5 g/dL (3.5-5.0); Magnesium 1.8 mg/dL (1.6-2.3); Phosphorus 3.1 mg/dL (2.5-4.5); Total Bilirubin 0.9 mg/dL (0.2-1.3); Total Protein 5.5 g/dL (6.3-8.2)
--- NOTE | 2020-04-28 08:56 | XR ---
EXAMINATION TYPE: XR chest 1V portable DATE OF EXAM: 04/28/2020 COMPARISON: Prior chest x-ray 04/27/2020 HISTORY: Pneumonia TECHNIQUE: Single frontal view of the chest is obtained. FINDINGS: Findings are similar to prior exam. There is underlying interstitial lung disease. Heart s ize is stable. Aorta is dense. Confluent density in the right midlung is rounded and masslike. No shandra dent pneumothorax. No sizable effusion evident. Hemidiaphragms partially obscured. IMPRESSION: Findings similar to prior exam. Interstitial lung disease. Correlate for pneumonia, foll ow-up to resolution to exclude underlying mass.
[2020-04-28] MEDS: FINASTERIDE 5 MG TAB PO SCH (08:58)
[2020-04-28] MEDS: hydroCHLOROthiazide 12.5 MG CAP PO SCH (08:58)
[2020-04-28] MEDS: guaiFENesin 600 MG TABLET.ER PO SCH (09:00)
[2020-04-28] MEDS ORDERED: ASPIRIN 81 MG PO SCH (09:00)
[2020-04-28] MEDS: MUPIROCIN 2% OINT 22 GM TUBE TOPICAL SCH (09:00)
[2020-04-28] MEDS: SILODOSIN 8 MG PO SCH (09:00)
[2020-04-28] MEDS: VERAPAMIL 40 MG TAB PO SCH ×2 (10:56→15:43)
--- NOTE | 2020-04-28 11:40 | P.CRDCN ---
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 His initial EKG showed a supraventricular tachycardia, he was given 2 doses of adenosine and converted back to normal sinus rhythm. Chest x-ray showed infiltrates bilaterally. Patient was initiated on IV antibiotics. Blood pressure this morning 132/76 with a heart rate of 104, 99% on 2 L of oxygen. White blood cell count 10.2, hemoglobin 12.0, platelet count 277. Sodium 140, potassium 4.0, BUN 11, creatinine 0.9. AST 87, ALT 140, alk phos 242, troponin 0.0-2, BNP level 364. TSH level VII.4, free T4 1 0.27. Pro calcitonin 0.15. Most of the history was obtained from the medical record. An echocardiogram with Doppler study has been requested. This morning the patient is in a sinus rhythm, sinus tachycardia with occasional PVCs. 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 PE 04/16/20. Obesity. squamous cell carcinoma 04/13/17. Type 2 DM. malignant melanoma in situ of skin of anterior chest 11/27. chronic bronchitis. mild cognitive impairment. Brain metastasis . 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 Bacteremia d/t streptococcus- shingles. sepsis. neuropathy. actinic keratoses. colonic adenoma, IBS. Arthritis of knee. Ascending aorta dila tation. lung nodules. ischemic stroke 05/28/2014. essential htn History of Any Multi-Drug Resistant Organisms: None Reported Additional Past Surgical History / Comment(s): squamous cell cancer removal right braun, cataracts- removed Past Anesthesia/Blood Transfusion Reactions: No Reported Reaction Past Psychological History: No Psychological Hx Reported Smoking Status: Former smoker Past Alcohol Use History: Rare Past Drug Use History: None Reported - Past Family History Mother Family Medical History: CVA/TIA Father Family Medical History: Congestive Heart Failure (CHF), Coronary Artery Disease (CAD) Medications and Allergies Home Medications Medication Instructions Recorded Confirmed Type Atorvastatin [Lipitor] 80 mg PO HS 05/08/17 04/27/20 History Finasteride [Proscar] 5 mg PO HS 05/08/17 04/27/20 History Insulin Glargine,Hum.rec.anlog 36 unit SQ HS 05/08/17 04/27/20 History [Lantus Solostar] Albuterol Inhaler [Ventolin Hfa 2 puff INHALATION RT-Q4H PRN 04/27/20 04/27/20 History Inhaler] Aspirin EC [Ecotrin Low Dose] 81 mg PO DAILY 04/27/20 04/27/20 History Benzonatate [Tessalon Perles] 100 mg PO TID PRN 04/27/20 04/27/20 History Cholecalciferol [Vitamin D3] 400 unit PO DAILY 04/27/20 04/27/20 History Enoxaparin [Lovenox] 80 mg SQ Q12H 04/27/20 04/27/20 History Galantamine HBr [Razadyne ER] 24 mg PO W/BRKFST 04/27/20 04/27/20 History Multivit-Min/FA/Lycopen/Lutein 1 tab PO DAILY 04/27/20 04/27/20 History [Centrum Silver Tablet] Tiotropium 18 Mcg/Puff [Spiriva] 2 cap INHALATION RT-DAILY 04/27/20 04/27/20 History Vit C/E/Zn/Coppr/Lutein/Zeaxan 1 cap PO BID 04/27/20 04/27/20 History [Preservision Areds 2 Softgel] Allergies Allergy/AdvReac Type Severity Reaction Status Date / Time lisinopril AdvReac Cough Verified 04/27/20 06:18 metformin AdvReac Nausea & Verified 04/27/20 06:18 Vomiting & Diarrhea Physical Exam Vitals: Vital Signs Temp Pulse Resp BP Pulse Ox 04/28/20 08:00 97.7 F 104 H 18 132/76 99 04/28/20 04:00 98.1 F 103 H 18 111/61 93 L 04/28/20 00:00 98.1 F 100 16 111/67 98 04/27/20 20:00 98.1 F 96 16 126/80 93 L 04/27/20 16:00 90 18 129/60 94 L 04/27/20 12:01 97.8 F 83 18 112/61 94 L Intake and Output 04/27/20 04/28/20 04/28/20 22:59 06:59 14:59 Intake Total 550 240 Output Total 550 Balance 0 240 Intake: IV 10 Invasive Line 1 10 Oral 540 240 Output: Urine 550 Other: Voiding Method Urinal Urinal Urinal Diaper Incontinent # Voids 550 # Bowel Movements 2 1 Weight 83 kg PHYSICAL EXAMINATION: GENERAL: Frail 85-year-old gentleman in no acute distress at the time of my examination HEENT: Head is atraumatic, normocephalic. Pupils equal, round. Sclera anicteric. Conjunctiva are clear. Mucous membranes of the mouth are moist. Neck is supple. There is no elevated jugular venous pressure. No carotid bruit is heard. HEART EXAMINATION: Heart S1 and S2 with systolic murmur is heard CHEST EXAMINATION: Lungs reveal scattered coarse rhonchi throughout. ABDOMEN: Soft, nontender. Bowel sounds are heard. No organomegaly noted. EXTREMITIES: 2+ peripheral pulses with no evidence of peripheral edema and no calf tenderness noted. NEUROLOGIC patient is awake, alert and oriented 1 . . Results 04/28/20 07:21 04/28/20 07:21 Cardiac Enzymes 04/28/20 Range/Units 07:21 AST 87 H (17-59) U/L CBC 04/28/20 Range/Units 07:21 WBC 10.2 (3.8-10.6) k/uL RBC 3.89 L (4.30-5.90) m/uL Hgb 12.0 L (13.0-17.5) gm/dL Hct 36.4 L (39.0-53.0) % Plt Count 277 (150-450) k/uL Comprehensive Metabolic Panel 04/28/20 Range/Units 07:21 Sodium 141 (137-145) mmol/L Potassium 4.0 (3.5-5.1) mmol/L Chloride 112 H (98-107) mmol/L Carbon Dioxide 23 (22-30) mmol/L BUN 11 (9-20) mg/dL Creatinine 0.91 (0.66-1.25) mg/dL Glucose 81 (74-99) mg/dL Calcium 8.0 L (8.4-10.2) mg/dL AST 87 H (17-59) U/L ALT 140 H (4-49) U/L Alkaline Phosphatase 242 H (38-126) U/L Total Protein 5.5 L (6.3-8.2) g/dL Albumin 2.5 L (3.5-5.0) g/dL Current Medications Generic Name Dose Route Start Last Admin Trade Name Freq PRN Reason Stop Dose Admin Aspirin 81 mg 04/28/20 09:00 04/28/20 08:58 Aspirin 81 Mg PO 81 mg DAILY ZOYA Administration Atorvastatin Calcium 80 mg 04/27/20 21:00 04/27/20 20:59 Atorvastatin 80 Mg Tab PO 80 mg HS ZOYA Administration Benzonatate 100 mg 04/27/20 10:05 04/27/20 17:48 Benzonatate 100 Mg Cap PO 100 mg TID PRN Administration Cough Enoxaparin Sodium 80 mg 04/27/20 04:00 04/28/20 03:36 Enoxaparin 80 Mg/0.8 Ml Syringe SQ 80 mg Q12H ZOYA Administration Finasteride 5 mg 04/27/20 09:00 04/28/20 08:58 Finasteride 5 Mg Tab PO 5 mg DAILY ZOYA Administration Guaifenesin 600 mg 04/27/20 10:05 04/28/20 09:00 Guaifenesin 600 Mg Tablet.Er PO 600 mg Q12HR ZOYA Administration Guaifenesin/Dextromethorphan 10 ml 04/28/20 03:30 Guaifenesin-Dm 100-10mg/5ml 10 Ml Cup PO Q6H PRN Cough Hydrochlorothiazide 12.5 mg 04/27/20 09:00 04/28/20 08:58 Hydrochlorothiazide 12.5 Mg Cap PO 12.5 mg DAILY ZOYA Administration Piperacillin Sod/Tazobactam 100 mls @ 25 mls/hr 04/27/20 10:00 04/28/20 09:00 Sod 3.375 gm/ Sodium Chloride IVPB 25 mls/hr Q8H ZOYA Administration Insulin Aspart 0 unit 04/27/20 07:30 04/28/20 06:42 Insulin Aspart (Novolog) 100 Unit/Ml Vial SQ Not Given ACHS [facility] Protocol Insulin Detemir 28 unit 04/27/20 21:00 04/27/20 20:59 Insulin Detemir (Levemir) 100 Unit/Ml Syr SQ 28 unit HS ZOYA Administration Miscellaneous Information 1 each 04/27/20 03:00 Pneumonia Protocol Utilized 1 Each Misc PO ONCE PRN Per Protocol Mupirocin 1 applic 04/27/20 09:00 04/28/20 09:00 Mupirocin 2% Oint 22 Gm Tube TOPICAL 1 applic BID ZOYA Administration Non-Formulary Medication 8 mg 04/27/20 09:00 04/28/20 09:00 Silodosin [Rapaflo] PO Not Given DAILY ZOYA Tiotropium [place] 1 puff 04/28/20 08:00 04/28/20 08:52 Tiotropium 18 Mcg/Puff Inhaler INHALATION 1 puff RT-DAILY ZOYA Administration Verapamil HCl 40 mg 04/28/20 10:45 04/28/20 10:56 Verapamil 40 Mg Tab PO 40 mg TID ZOYA Administration Intake and Output 04/27/20 04/28/20 04/28/20 22:59 06:59 14:59 Intake Total 550 240 Output Total 550 Balance 0 240 Intake: IV 10 Invasive Line 1 10 Oral 540 240 Output: Urine 550 Other: Voiding Method Urinal Urinal Urinal Diaper Incontinent # Voids 550 # Bowel Movements 2 1 Weight 83 kg 04/28/20 07:21 04/28/20 07:21 EKG Interpretations (text) Initial EKG showed a supraventricular tachycardia, subsequent EKG showed a sinus tachycardia with occasional PVCs. Assessment and Plan Plan: Assessment and plan #1 supraventricular tachycardia, adenosine given 2, in a normal sinus rhythm this morning #2 pneumonia #3 stage IV lung cancer with known metastases to the brain and liver #4 recent diagnosis of pulmonary embolism #5 diabetes #6 hypertension #7 hyperlipidemia #8 COPD #9 TIA Plan We will obtain an echocardiogram with Doppler study, if the patient's LV function is normal we will start the patient on calcium channel derek. Continue to monitor. DNP note has been reviewed, I agree with a documented findings and plan of care. Patient was seen and examined.
[2020-04-28 12:22] LABS: Glucose,Whole Blood 104 mg/dL (75-99)
[2020-04-28 13:52] VITALS: BMI 27.8
--- NOTE | 2020-04-28 14:52 | ECHOF ---
Referral Reason:shortness of breath MEASUREMENTS -------- HEIGHT: 172.7 cm WEIGHT: 82.6 kg BP: 111/61 RVIDd: 3.3 cm (< 3.3) IVSd: 1.2 cm (0.6 - 1.1) LVIDd: 2.8 cm (3.9 - 5.3) LVPWd: 1.1 cm (0.6 - 1.1) IVSs: 1.8 cm LVIDs: 2.0 cm LVPWs: 1.6 cm LA Diam: 2.8 cm (2.7 - 3.8) Ao Diam: 3.6 cm (2.0 - 3.7) AV Cusp: 2.4 cm (1.5 - 2.6) MV EXCURSION: 14.924 mm (> 18.000) MV EF SLOPE: 180 mm/s (70 - 150) EPSS: 2.0 cm MV E Keo: 0.72 m/s MV DecT: 160 ms MV A Keo: 1.36 m/s MV E/A Ratio: 0.53 RAP: 5.00 mmHg RVSP: 24.55 mmHg FINDINGS -------- Sinus rhythm. This was a technically difficult study with suboptimal views. The left ventricular size is normal. There is borderline concentric left ventricular hypertrophy. Overall left ventricular systolic function is low-normal with, an EF between 50 - 55 %. The right ventricle is mildly enlarged. The left atrium is normal in size. The right atrium was not well visualized. Lumason used Interatrial and interventricular septum intact. There is mild aortic valve sclerosis. The mitral valve leaflets are mildly thickened. Mild mitral annular calcification present. There is trace to mild mitral regurgitation. Mild tricuspid regurgitation present. Right ventricular systolic pressure is normal at < 35 mmHg. The pulmonic valve was not well visualized. The aortic root size is normal. IVC Not well visulized. There is no pericardial effusion. CONCLUSIONS -------- 1. The left ventricular size is normal. 2. There is borderline concentric left ventricular hypertrophy. 3. Overall left ventricular systolic function is low-normal with, an EF between 50 - 55 %. 4. The right ventricle is mildly enlarged. 5. Lumason used 6. The mitral valve leaflets are mildly thickened. 7. Mild mitral annular calcification present. 8. There is trace to mild mitral regurgitation. 9. Mild tricuspid regurgitation present. 10. There is no pericardial effusion. INTERNET MARKETING ASSISTANT: Jennifer Mares RDCS
[2020-04-28 15:41] VITALS: BP 112/69; PULSE 106; TEMP 97.7
--- NOTE | 2020-04-28 19:09 | P.DS ---
Providers Date of admission: 04/27/20 03:24 Expected date of discharge: 04/28/20 Attending physician: Sinai Newberry MD Consults: 04/27/20 08:55 Consult Physician Routine Consulting Provider: Jose David Lewis Consult Reason/Comments: SVT Do you want consulting provider notified?: Yes Primary care physician: Physician Nonstaff Hospital Course: Discharge Diagnosis: SVT with resultant hypotension Stage IV lung cancer with metastases to brain and liver Pneumonia ruled out Recently diagnosed pulmonary embolism Mild cognitive impairment Diabetes mellitus type 2 Dyslipidemia Hypertension COPD History of TIA IBS Hospital Course: Patient is an 85-year-old male with a history of stage IV lung cancer currently undergoing radiation therapy but no chemotherapy through [facility], diabetes, and hypertension who presented to the emergency department due to dizziness with fast heart rate and low blood pressure at home. In the ER he underwent an extensive evaluation. Initial EKG showed SVT he was given 2 doses of adenosine and converted to normal sinus rhythm. Chest x-ray showed infiltrates which were felt to be related to pneumonia versus cancer. He was started on Zosyn. Laboratory analysis showed a white blood cell count of 10.7, states his white blood cell count is chronically elevated. AST 106, ALT 180, alkaline phosphatase 290, pro-calcitonin mildly elevated at 0.15, TSH 7.4 with normal T4. He was admitted for further evaluation with cardiology. He was also complaining of left hip pain and underwent an x-ray which showed severe arthritis. He was monitored on telemetry for greater than 24 hours and had no recurrence of his supraventricular tachycardia. He was seen by cardiology and underwent an echocardiogram which showed an ejection fraction of 55-60% without significant valvular dysfunction. Records were obtained from [facility] which demonstrated by his chest x-ray was chronic due to his stage IV lung cancer. His pro-calcitonin came back only mildly elevated at 0.15 not consistent with bacterial infection. He was doing well and without clinical si gns or symptoms of pneumonia. He was determined stable for discharge home. He was placed on verapamil 3 times daily. He will follow up with Dr. Lewis on 05/15. He will follow-up with his primary care physician next week. His will follow his blood pressure and pulse daily and was given strict instructions on when to seek medical advice. Patient was discharged home in stable condition. Patient improved faster than anticipated and was discharged in less than 2 midnights Patient seen and examined at bedside. No chest pain, no unusual shortness of breath, no unusual cough. Feeling well and wants to go home. Vital signs reviewed and stable. General: non toxic, no distress, appears at stated age Derm: warm, dry Head: atraumatic, normocephalic, symmetric Eyes: EOMI, no lid lag, anicteric sclera Mouth: no lip lesion, mucus membranes moist Cardiovascular: S1S2 reg, no murmur, positive posterior tibial pulse bilateral, Lungs: Rhonchi right chest, no accessory muscle use Abdominal: soft, nontender to palpation, no guarding, no appreciable organomegaly Ext: no gross muscle atrophy, no edema, no contractures Neuro: CN II-XI grossly intact, no focal neuro deficits Psych: Alert to self being in the hospital, appropriate affect A total of 25 minutes of time were spent preparing this complex discharge summary . Patient Condition at Discharge: Fair Plan - Discharge Summary Discharge Rx Participant: No New Discharge Prescriptions: New Verapamil [Isoptin] 40 mg PO TID #90 tab Silodosin [Rapaflo] 8 mg PO DAILY Continue Insulin Glargine,Hum.rec.anlog [Lantus Solostar] 36 unit SQ HS Finasteride [Proscar] 5 mg PO HS Atorvastatin [Lipitor] 80 mg PO HS Benzonatate [Tessalon Perles] 100 mg PO TID PRN PRN Reason: Cough Tiotropium 18 Mcg/Puff [Spiriva] 2 cap INHALATION RT-DAILY Enoxaparin [Lovenox] 80 mg SQ Q12H Albuterol Inhaler [Ventolin Hfa Inhaler] 2 puff INHALATION RT-Q4H PRN PRN Reason: Shortness Of Breath Cholecalciferol [Vitamin D3] 400 unit PO DAILY Multivit-Min/FA/Lycopen/Lutein [Centrum Silver Tablet] 1 tab PO DAILY Galantamine HBr [Razadyne ER] 24 mg PO W/BRKFST Aspirin EC [Ecotrin Low Dose] 81 mg PO DAILY Vit C/E/Zn/Coppr/Lutein/Zeaxan [Preservision Areds 2 Softgel] 1 cap PO BID Discharge Medication List Atorvastatin [Lipitor] 80 mg PO HS 05/08/17 [History] Finasteride [Proscar] 5 mg PO HS 05/08/17 [History] Insulin Glargine,Hum.rec.anlog [Lantus Solostar] 36 unit SQ HS 05/08/17 [History] Albuterol Inhaler [Ventolin Hfa Inhaler] 2 puff INHALATION RT-Q4H PRN 04/27/20 [History] Aspirin EC [Ecotrin Low Dose] 81 mg PO DAILY 04/27/20 [History] Benzonatate [Tessalon Perles] 100 mg PO TID PRN 04/27/20 [History] Cholecalciferol [Vitamin D3] 400 unit PO DAILY 04/27/20 [History] Enoxaparin [Lovenox] 80 mg SQ Q12H 04/27/20 [History] Galantamine HBr [Razadyne ER] 24 mg PO W/BRKFST 04/27/20 [History] Multivit-Min/FA/Lycopen/Lutein [Centrum Silver Tablet] 1 tab PO DAILY 04/27/20 [History] Tiotropium 18 Mcg/Puff [Spiriva] 2 cap INHALATION RT-DAILY 04/27/20 [History] Vit C/E/Zn/Coppr/Lutein/Zeaxan [Preservision Areds 2 Softgel] 1 cap PO BID 04/27/20 [History] Silodosin [Rapaflo] 8 mg PO DAILY 04/28/20 [Rx] Verapamil [Isoptin] 40 mg PO TID #90 tab 04/28/20 [Rx] Follow up Appointment(s)/Referral(s): Jose David Lewis MD [STAFF PHYSICIAN] - 05/15/20 10:30 am (THURSDAY) Nonstaff,Physician [Primary Care Provider] - 1-2 days Patient Instructions/Handouts: Supraventricular Tachycardia (DC) Activity/Diet/Wound Care/Special Instructions: Activity: as tolerated Diet: regular Special Instructions: Check blood pressure and pulse once daily, make a log Call your family doctor or the assembling fabricator if heart rate less than 60, top number of blood pressure less than 90, seek medical care if heart greater than 130. Discharge Disposition: HOME SELF-CARE
--- NOTE | 2020-04-30 16:40 | CDI ---
Documentation Clarification Form Date: 04/30/20 From: Molly Philip Phone: If you have a question about this query, please contact Stephanie Borjas Carbonizer Tester at [phone] between 8am and 5pm. Admit Date: 04/27/20 Discharge Date:04/28/20 Patient Name: Sreekanth Deleon Visit Number: [id number] ATTENTION: The Clinical Documentation Specialists (CDI) and [facility] Coding Staff appreciate your assistance in clarifying documentation. Please respond to the clarification below the line at the bottom and electronically sign. The CDI & [facility] Coding staff will review the response and follow-up if needed. Please note: Queries are made part of the Legal Health Record. If you have any questions, please contact the author of this message via ITS. Dear Dr. Alvarenga The patient presented with the following: SVT and hypotension. Documentation in the H&P states possible underlying sepsis with pneumonia. Pneumonia ruled out was documented in the discharge summary. SVT with resultant hypotension documented in the discharge summary. History/Risk Factors: History of recent pneumonia, lung cancer, COPD Clinical Indicators: Elevated WBC, SVT, hypotension, WBC: 10.7 Lactic acid: Not tested Blood cultures: No growth Vitals signs on admission: T. 98.0, P 160, R. 16, BP 97/65 Treatment: Antibiotics: IV Zosyn IV Bolus: 1/2 L NS In your professional opinion, please clarify if these findings signify one of the following conditions: Condition Sepsis ruled out SIRS, without underlying infectious process Sepsis Other, please specify Unable to determine Link or clarify if there is associated (due to/with): Organ failure Shock SIRS Criteria (2 or more of the following may indicate SIRS): -Temperature < 96.8F (36C) or > 101.0F (38.3C) -Heart Rate > 90 bpm -Respiratory Rate > 20 breaths/min or PaCO2 < 32 mmHg -White Blood Cell Count > 12,000 or < 4,000 cells/mm3 or > 10% bands -Lactate >2.0 mmol/L (>4.0 is equivalent to septic shock) Sepsis Other, please specify __SVT__ MTDD
--- NOTE | 2020-05-04 14:19 | CDI ---
Documentation Clarification Form Date: 05/03/20 From: Molly Philip Phone: If you have a question about this query, please contact Stephanie Borjas, [employer] at [phone] between 8am and 5pm. Admit Date: 04/27/20 Discharge Date: 04/28/20 Patient Name: Sreekanth Deleon Visit Number: [id number] ATTENTION: The Clinical Documentation Specialists (CDI) and [facility] Coding Staff appreciate your assistance in clarifying documentation. Please respond to the clarification below the line at the bottom and electronically sign. The CDI & [facility] Coding staff will review the response and follow-up if needed. Please note: Queries are made part of the Legal Health Record. If you have any questions, please contact the author of this message via ITS. Dear Dr. Keith The patient presented with the following: SVT and hypotension. Documentation in the H&P states possible underlying sepsis with pneumonia. SVT with resultant hypotension documented in the discharge summary. Pneumonia ruled out was documented in the discharge summary. You documented the patient had sepsis in your previous query response. History/Risk Factors: History of recent pneumonia, lung cancer, COPD Clinical Indicators: Elevated WBC WBC: 10.7 Lactic acid: Not tested Blood cultures: No growth Vitals signs on admission: T. 98.0, P 160, R. 16, BP 97/65 Treatment: Antibiotics: IV Zosyn IV Bolus: 1/2 L NS In your professional opinion, can you please clarify the etiology of the sepsis? Sepsis due to infectious process (please document the infectious process) Sepsis due to non infectious process (please document the process) Other, please specify Unable to determine No sepsis, hypotension due to SVT MTDD
== END 2020-04-28 16:55 | disposition home or self-care (01) | DRG 308 ==
LOC: EC 00:40 → 3SCARD 03:24
PROVIDERS: ADMIT Internal Medicine; ATTEND Internal Medicine
DX: I47.1 Supraventricular tachycardia (principal); I26.99 Other pulmonary embolism without acute cor pulmonale; C34.90 Malignant neoplasm of unspecified part of unspecified bronchus or lung; C78.7 Secondary malignant neoplasm of liver and intrahepatic bile duct; C79.31 Secondary malignant neoplasm of brain; I49.3 Ventricular premature depolarization; E11.40 Type 2 diabetes mellitus with diabetic neuropathy, unspecified; I95.9 Hypotension, unspecified; J44.9 Chronic obstructive pulmonary disease, unspecified; I77.810 Thoracic aortic ectasia; Z79.4 Long term (current) use of insulin; E78.5 Hyperlipidemia, unspecified; G31.84 Mild cognitive impairment of uncertain or unknown etiology; I10 Essential (primary) hypertension; K58.9 Irritable bowel syndrome, unspecified; M17.10 Unilateral primary osteoarthritis, unspecified knee; E66.9 Obesity, unspecified; L57.0 Actinic keratosis; R74.8 Abnormal levels of other serum enzymes; R94.6 Abnormal results of thyroid function studies; Z20.828 Contact with and (suspected) exposure to other viral communicable diseases; R32 Unspecified urinary incontinence; Z79.82 Long term (current) use of aspirin; Z79.899 Other long term (current) drug therapy; Z86.006 Personal history of melanoma in-situ; Z88.8 Allergy status to other drugs, medicaments and biological substances; Z92.3 Personal history of irradiation; Z87.891 Personal history of nicotine dependence; Z86.73 Personal history of transient ischemic attack (TIA), and cerebral infarction without residual deficits; Z87.01 Personal history of pneumonia (recurrent); Z98.42 Cataract extraction status, left eye; Z98.41 Cataract extraction status, right eye; Z87.19 Personal history of other diseases of the digestive system; Z82.49 Family history of ischemic heart disease and other diseases of the circulatory system; Z82.3 Family history of stroke
CPT/HCPCS: 36415; 71045; 73501; 80053; 81001; 83735; 83880; 84100; 84145; 84439; 84443; 84484; 85025; 85027; 85610; 85730; 87040; 87635; 93005; 93306; 94640; 96365; 96366; 96372; 96375; 99285

== ENCOUNTER 2020-04-29 12:25 | Inpatient (IN) | payer MEDICARE ==
[2020-04-29] MEDS ORDERED: SODIUM CHLORIDE 0.9% 1,000 ML IV STA (12:39)
[2020-04-29 12:59] LABS: Anisocytosis Slight; Basophils % (A) 0 %; Eosinophils # (A) 0.2 k/uL (0-0.7); Eosinophils % (A) 1 %; HCT 32.7 % (39.0-53.0); HGB 11.2 gm/dL (13.0-17.5); Lymphocytes # (A) 0.9 k/uL (1.0-4.8); Lymphocytes % (A) 7 %; MCH 30.8 pg (25.0-35.0); MCHC 34.1 g/dL (31.0-37.0); MCV 90.2 fL (80.0-100.0); Monocytes # (A) 1.2 k/uL (0-1.0); Monocytes % (A) 9 %; Neutrophils # (A) 10.3 k/uL (1.3-7.7); Neutrophils % (A) 80 %; Platelet Count 342 k/uL (150-450); RBC 3.63 m/uL (4.30-5.90); RDW 17.7 % (11.5-15.5); WBC 12.8 k/uL (3.8-10.6)
[2020-04-29 13:04] LABS: Partial Thromboplastin Time 24.9 sec (22.0-30.0)
[2020-04-29 13:05] LABS: Albumin 2.6 g/dL (3.5-5.0); Calcium 8.1 mg/dL (8.4-10.2); Magnesium 1.8 mg/dL (1.6-2.3); Potassium 3.7 mmol/L (3.5-5.1); Total Bilirubin 1.2 mg/dL (0.2-1.3); Total Protein 5.5 g/dL (6.3-8.2)
--- NOTE | 2020-04-29 13:17 | ED ---
General Adult HPI - General Chief complaint: Arrhythmia/Palpitations Stated complaint: SVT Time Seen by Provider: 04/29/20 12:25 Source: patient, EMS, RN notes reviewed, old records reviewed Mode of arrival: EMS - History of Present Illness Initial comments: This is an 85-year-old male who was recently discharged from hospital yesterday after having been in the hospital for SVT. Patient also has a recent history of a pulmonary embolism and is on Lovenox for that. He was sent home on verapamil 3 times a day. Patient did take his morning dose. noted a large area of e cchymosis on the left hip and called EMS when EMS arrived the patient's heart rate was 220. At that point time EMS brought him to the emergency department. Patient stated he is not having any chest pain or palpitations. Patient denied any shortness of breath. states she noted him to be quite short of breath at that time. Patient denies any recent fever chills or cough per patient denies any abdominal pain patient denies nausea vomiting diarrhea. Patient states he feels at his baseline currently. - Related Data Home Medications Medication Instructions Recorded Confirmed Atorvastatin [Lipitor] 80 mg PO HS 05/08/17 04/29/20 Finasteride [Proscar] 5 mg PO HS 05/08/17 04/29/20 Insulin Glargine,Hum.rec.anlog 36 unit SQ HS 05/08/17 04/29/20 [Lantus Solostar] Albuterol Inhaler [Ventolin Hfa 2 puff INHALATION RT-Q4H PRN 04/27/20 04/29/20 Inhaler] Aspirin EC [Ecotrin Low Dose] 81 mg PO DAILY 04/27/20 04/29/20 Benzonatate [Tessalon Perles] 100 mg PO TID PRN 04/27/20 04/29/20 Cholecalciferol [Vitamin D3] 400 unit PO DAILY 04/27/20 04/29/20 Enoxaparin [Lovenox] 80 mg SQ Q12H 04/27/20 04/29/20 Galantamine HBr [Razadyne ER] 24 mg PO W/BRKFST 04/27/20 04/29/20 Multivit-Min/FA/Lycopen/Lutein 1 tab PO DAILY 11/13/20 11/15/20 [Centrum Silver Tablet] Tiotropium 18 Mcg/Puff [Spiriva] 2 cap INHALATION RT-DAILY 04/27/20 04/29/20 Vit C/E/Zn/Coppr/Lutein/Zeaxan 1 cap PO BID 04/27/20 04/29/20 [Preservision Areds 2 Softgel] Previous Rx's Medication Instructions Recorded Verapamil [Isoptin] 40 mg PO TID #90 tab 04/28/20 Allergies Allergy/AdvReac Type Severity Reaction Status Date / Time lisinopril AdvReac Cough Verified 04/29/20 13:44 metformin AdvReac Nausea & Verified 04/29/20 13:44 Vomiting & Diarrhea Review of Systems ROS Statement: Those systems with pertinent positive or pertinent negative responses have been documented in the HPI. ROS Other: All systems not noted in ROS Statement are negative. 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 PE 04/16/20. Obesity. squamous cell carcinoma 04/13/17. Type 2 DM. malignant melanoma in situ of skin of anterior chest 11/27/17. chronic bronchitis. mild cognitive impairment. Brain metastasis . 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 Bacteremia d/t streptococcus- shingles. sepsis. neuropathy. actinic keratoses. colonic adenoma, IBS. Arthritis of knee. Ascending aorta dilatation. lung nodules. ischemic stroke 05/28/2014. essential htn History of Any Multi-Drug Resistant Organisms: None Reported Additional Past Surgical History / Comment(s): squamous cell cancer removal right braun, cataracts- removed Past Anesthesia/Blood Transfusion Reactions: No Reported Reaction Past Psychological History: No Psychological Hx Reported Smoking Status: Former smoker Past Alcohol Use History: Rare Past Drug Use History: None Reported - Past Family History Mother Family Medical History: CVA/TIA Father Family Medical History: Congestive Heart Failure (CHF), Coronary Artery Disease (CAD) General Exam - General Exam Comments Initial Comments: GENERAL: Patient is well-developed and well-nourished. Patient is nontoxic and well- hydrated and is in no acute distress. ENT: Neck is soft and supple. No significant lymphadenopathy is noted. Oropharynx is clear. Moist mucous membranes. Neck has full range of motion without eliciting any pain. EYES: The sclera were anicteric and conjunctiva were pink and moist. Extraocular movements were intact and pupils were equal round and reactive to light. Eyelids were unremarkable. PULMONARY: Unlabored respirations. Good breath sounds bilaterally. No audible rales rhonchi or wheezing was noted. CARDIOVASCULAR: Patient is tachycardic but has regular rhythm at about 115 beats a minute ABDOMEN: Soft and nontender with normal bowel sounds. No palpable organomegaly was noted. There is no palpable pulsatile mass. SKIN: Skin is clear with no lesions or rashes and otherwise unremarkable. NEUROLOGIC: Patient is alert and oriented x3. Cranial nerves II through XII are grossly intact. Motor and sensory are also intact. Normal speech, volume and content. Symmetrical smile. MUSCULOSKELETAL: Normal extremities with adequate strength and full range of motion. Patient has a large hematoma to the left hip LYMPHATICS: No significant lymphadenopathy is noted PSYCHIATRIC: Normal psychiatric evaluation. Course Vital Signs 04/29/20 04/29/20 12:27 12:59 Temperature 98.2 F Pulse Rate 113 H 98 Respiratory 18 18 Rate Blood Pressure 97/57 100/59 O2 Sat by Pulse 94 L 100 Oximetry Medical Decision Making - Medical Decision Making EKG shows sinus tachycardia at 114 beats a minute ID interval 136 dresses 74 QT interval 350 QTC is 482. Patient's EKG shows no ST segment elevation or depression. Chest x-ray shows a mass like structure that was seen in previous x-ray. Other than that the x-ray shows no changes from the previous x-ray. I spoke with Dr. Lewis he wanted the patient admitted and observed. I spoke with some physicians in the agreed to admit the patient admitted the patient wrote admitting orders I consulted cardiology. - Lab Data Result diagrams: 04/29/20 12:47 04/29/20 12:47 Lab Results 04/29/20 04/29/20 04/29/20 Range/Units 12:47 12:47 12:47 WBC 12.8 H (3.8-10.6) k/uL RBC 3.63 L (4.30-5.90) m/uL Hgb 11.2 L (13.0-17.5) gm/dL Hct 32.7 L (39.0-53.0) % MCV 90.2 (80.0-100.0) fL MCH 30.8 (25.0-35.0) pg MCHC 34.1 (31.0-37.0) g/dL RDW 17.7 H (11.5-15.5) % Plt Count 342 (150-450) k/uL MPV 8.0 Neutrophils % 80 % Lymphocytes % 7 % Monocytes % 9 % Eosinophils % 1 % Basophils % 0 % Neutrophils # 10.3 H (1.3-7.7) k/uL Lymphocytes # 0.9 L (1.0-4.8) k/uL Monocytes # 1.2 H (0-1.0) k/uL Eosinophils # 0.2 (0-0.7) k/uL Basophils # 0.0 (0-0.2) k/uL Anisocytosis Slight PT 10.0 (9.0-12.0) sec INR 1.0 (<1.2) APTT 24.9 (22.0-30.0) sec Sodium 137 (137-145) mmol/L Potassium 3.7 (3.5-5.1) mmol/L Chloride 110 H (98-107) mmol/L Carbon Dioxide 18 L (22-30) mmol/L Anion Gap 9 mmol/L BUN 17 (9-20) mg/dL Creatinine 1.11 (0.66-1.25) mg/dL Est GFR (CKD-EPI)AfAm 70 (>60 ml/min/1.73 sqM) Est GFR (CKD-EPI)NonAf 61 (>60 ml/min/1.73 sqM) Glucose 125 H (74-99) mg/dL Calcium 8.1 L (8.4-10.2) mg/dL Magnesium 1.8 (1.6-2.3) mg/dL Total Bilirubin 1.2 (0.2-1.3) mg/dL AST 74 H (17-59) U/L ALT 99 H (4-49) U/L Alkaline Phosphatase 199 H (38-126) U/L Troponin I (0.000-0.034) ng/mL NT-Pro-B Natriuret Pep pg/mL Total Protein 5.5 L (6.3-8.2) g/dL Albumin 2.6 L (3.5-5.0) g/dL 04/29/20 04/29/20 Range/Units 12:47 12:47 WBC (3.8-10.6) k/uL RBC (4.30-5.90) m/uL Hgb (13.0-17.5) gm/dL Hct (39.0-53.0) % MCV (80.0-100.0) fL MCH (25.0-35.0) pg MCHC (31.0-37.0) g/dL RDW (11.5-15.5) % Plt Count (150-450) k/uL MPV Neutrophils % % Lymphocytes % % Monocytes % % Eosinophils % % Basophils % % Neutrophils # (1.3-7.7) k/uL Lymphocytes # (1.0-4.8) k/uL Monocytes # (0-1.0) k/uL Eosinophils # (0-0.7) k/uL Basophils # (0-0.2) k/uL Anisocytosis PT (9.0-12.0) sec INR (<1.2) APTT (22.0-30.0) sec Sodium (137-145) mmol/L Potassium (3.5-5.1) mmol/L Chloride (98-107) mmol/L Carbon Dioxide (22-30) mmol/L Anion Gap mmol/L BUN (9-20) mg/dL Creatinine (0.66-1.25) mg/dL Est GFR (CKD-EPI)AfAm (>60 ml/min/1.73 sqM) Est GFR (CKD-EPI)NonAf (>60 ml/min/1.73 sqM) Glucose (74-99) mg/dL Calcium (8.4-10.2) mg/dL Magnesium (1.6-2.3) mg/dL Total Bilirubin (0.2-1.3) mg/dL AST (17-59) U/L ALT (4-49) U/L Alkaline Phosphatase (38-126) U/L Troponin I 0.020 (0.000-0.034) ng/mL NT-Pro-B Natriuret Pep 904 pg/mL Total Protein (6.3-8.2) g/dL Albumin (3.5-5.0) g/dL Disposition Clinical Impression: SVT (supraventricular tachycardia) Disposition: ADMITTED IP TO THIS HOSP Referrals: Nonstaff,Physician [Primary Care Provider] - 1-2 days Time of Disposition: 13:49
--- NOTE | 2020-04-29 13:25 | XR ---
EXAMINATION TYPE: XR chest 2V DATE OF EXAM: 04/29/2020 COMPARISON: 04/28/2020 HISTORY: Shortness of breath TECHNIQUE: Frontal and lateral views of the chest are obtained. FINDINGS: Again Noted is underlying interstitial prominence. Improved aeration left lower lobe. Confluent massl elizabeth density right midlung zone may reflect underlying mass or infiltrate or trapped fluid within the fissure. Heart size is stable. Mediastinal structures are stable and grossly unremarkable. No evidence for hilar prominence. Degenerative changes dorsal spine. IMPRESSION: 1. Again Noted is underlying interstitial prominence. Improved aeration left lower lobe. Confluent ma sslike density right midlung zone may reflect underlying mass or infiltrate or trapped fluid within t he fissure.
[2020-04-29] MEDS ORDERED: NITROGLYCERIN SL TABS 0.4 MG TAB SUBLINGUAL PRN (13:50)
[2020-04-29 20:26] LABS: Glucose,Whole Blood 96 mg/dL (75-99)
[2020-04-29] MEDS ORDERED: ALBUTEROL NEBULIZED 2.5 MG/3 ML INHALATION PRN (20:46)
[2020-04-29] MEDS ORDERED: BENZONATATE 100 MG CAP PO PRN (20:46)
[2020-04-29] MEDS: INSULIN DETEMIR (LEVEMIR) 100 UNIT/ML SYR SQ SCH (21:02)
[2020-04-29] MEDS: VERAPAMIL 40 MG TAB PO SCH (21:40)
[2020-04-29] MEDS: ATORVASTATIN 80 MG TAB PO SCH (21:41)
[2020-04-29] MEDS: FINASTERIDE 5 MG TAB PO SCH (21:41)
[2020-04-29] MEDS: SODIUM CHLORIDE 0.9% 1,000 ML IV SCH (21:43)
[2020-04-29 21:50] LABS: Anisocytosis Slight; Basophils % (A) 0 %; Eosinophils # (A) 0.2 k/uL (0-0.7); Eosinophils % (A) 2 %; HCT 28.7 % (39.0-53.0); Lymphocytes # (A) 0.9 k/uL (1.0-4.8); Lymphocytes % (A) 9 %; MCH 30.7 pg (25.0-35.0); MCHC 33.5 g/dL (31.0-37.0); MCV 91.8 fL (80.0-100.0); Mean Platelet Volume 8.1; Monocytes % (A) 10 %; Neutrophils # (A) 7.6 k/uL (1.3-7.7); Neutrophils % (A) 77 %; Platelet Count 248 k/uL (150-450); RBC 3.13 m/uL (4.30-5.90); RDW 17.8 % (11.5-15.5); WBC 9.9 k/uL (3.8-10.6)
[2020-04-29 21:59] LABS: HGB 9.6 gm/dL (13.0-17.5)
--- NOTE | 2020-04-29 22:58 | P.HPIM ---
History of Present Illness H&P Date: 04/29/20 Chief Complaint: echymosis of the left hip 85 year old male with DM , lung cancer with mets, hypertension patient comes in shortly after discharge, due to big echymosis and bruising over his left hip. during his recent hospital stay , he complained of discomfort over his left hip, but only small bruising over the lower left flank was noted if any at that time, he had good range of movement over the left hip, imaging showed severe osteoarthritis at that time. where he was admitted for SVT. today , afternoon, his noticed large echymosis over left hip and buttock, patient claims that its not exceptionally tender or painful. patient is on Lovenox due to recent diagnosis of Acute PE back on April 18. he receives most of his [facility] in [facility]. since then he has been on lovenox , no report of bleeding events. NO REPORT of any trauma , fall, or injury to the area. notified ems , who found the patient heart rate to be in the 200 range. patient initial hemoglobin in the ED, showed very slight drop from his baseline, but repeating his hemoglobin about 8 hours later, showed some more significant drop. he is admitted for further care otherwise patient denies any physical complaints, and reports he feels way better than he should feel . denies any trouble breathing, dizziness, fever, chills, chest pain nausea or vomiting. he denies any palpitations during his most recent admission he was found to have elevated TSH , but his free T4 was wnl echocardiogram showed preserved LVEF I spoke with the over the phone, she contributed most of the above history . radiation oncology João Morales @ [phone] Rashid Shah [facility] doctor to doctor Review of Systems Pertinent positives as noted in HPI. 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 PE 04/16/20. Obesity. squamous cell carcinoma 04/13/17. Type 2 DM. malignant melanoma in situ of skin of anterior chest 11/27/17. chronic bronchitis. mild cognitive impairment. Brain metastasis . 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 Bacteremia d/t streptococcus- shingles. sepsis. neuropathy. actinic keratoses. colonic adenoma, IBS. Arthritis of knee. Ascending aorta dilatat ion. lung nodules. ischemic stroke 05/28/2014. essential htn History of Any Multi-Drug Resistant Organisms: None Reported Additional Past Surgical History / Comment(s): squamous cell cancer removal right braun, cataracts- removed Past Anesthesia/Blood Transfusion Reactions: No Reported Reaction Past Psychological History: No Psychological Hx Reported Smoking Status: Former smoker Past Alcohol Use History: Rare Past Drug Use History: None Reported - Past Family History Mother Family Medical History: CVA/TIA Father Family Medical History: Congestive Heart Failure (CHF), Coronary Artery Disease (CAD) Medications and Allergies Home Medications Medication Instructions Recorded Confirmed Type Atorvastatin [Lipitor] 80 mg PO HS 05/08/17 04/29/20 History Finasteride [Proscar] 5 mg PO HS 05/08/17 04/29/20 History Insulin Glargine,Hum.rec.anlog 36 unit SQ HS 05/08/17 04/29/20 History [Lantus Solostar] Albuterol Inhaler [Ventolin Hfa 2 puff INHALATION RT-Q4H PRN 04/27/20 04/29/20 History Inhaler] Aspirin EC [Ecotrin Low Dose] 81 mg PO DAILY 04/27/20 04/29/20 History Benzonatate [Tessalon Perles] 100 mg PO TID PRN 04/27/20 04/29/20 History Cholecalciferol [Vitamin D3] 400 unit PO DAILY 04/27/20 04/29/20 History Enoxaparin [Lovenox] 80 mg SQ Q12H 04/27/20 04/29/20 History Galantamine HBr [Razadyne ER] 24 mg PO W/BRKFST 04/27/20 04/29/20 History Multivit-Min/FA/Lycopen/Lutein 1 tab PO DAILY 04/27/20 04/29/20 History [Centrum Silver Tablet] Tiotropium 18 Mcg/Puff [Spiriva] 2 cap INHALATION RT-DAILY 04/27/20 04/29/20 History Vit C/E/Zn/Coppr/Lutein/Zeaxan 1 cap PO BID 04/27/20 04/29/20 History [Preservision Areds 2 Softgel] Verapamil [Isoptin] 40 mg PO TID #90 tab 04/28/20 04/29/20 Rx Allergies Allergy/AdvReac Type Severity Reaction Status Date / Time lisinopril AdvReac Cough Verified 04/29/20 13:44 metformin AdvReac Nausea & Verified 04/29/20 13:44 Vomiting & Diarrhea Physical Exam Vitals: Vital Signs Temp Pulse Pulse Resp BP BP Pulse Ox 04/29/20 17:34 97.7 F 100 18 105/56 95 04/29/20 13:49 101 H 18 108/62 99 04/29/20 12:59 98 18 100/59 100 04/29/20 12:27 98.2 F 113 H 18 97/57 94 L Intake and Output 04/29/20 04/29/20 04/29/20 06:59 14:59 22:59 Intake Total 125 Balance 125 Intake: Oral 125 Other: Voiding Method Urinal Diaper Weight 83.915 kg Constitutional: No acute distress, conversant, pleasant Eyes: Anicteric sclerae, moist conjunctiva, Pupils equal round reactive to light ENMT: NC/AT Oropharynx clear, no erythema, or exudates Neck: Supple, FROM, no masses, or JVD No carotid bruits No thyromegaly Lungs: Clear to auscultation, no wheezing Clear to percussion Normal respiratory effort, no accessory muscle use Cardiovascular: Heart regular in rate and rhythm, No murmurs, gallops, or rubs No peripheral edema Abdominal: Soft Nontender, no guarding, rebound or rigidity Abdomen moving with respiration Normoactive bowel sounds No hepatomegaly, No splenomegaly No palpable mass No abdominal wall hernia noted Skin: large area of echymosis over the left buttock and thigh dorsally , with areas that are hard to the touch and warm, no tenderness reported by the patient , no cuts or wounds. Normal temperature, tone, texture, turgor No induration No subcutaneous nodules No rash, lesions No ulcers Extremities: large area of echymosis over the left buttock and thigh dorsally , with areas that are hard to the touch and warm, no tenderness reported by the patient , no cuts or wounds. No digital cyanosis No clubbing Pedal pulses intact and symmetrical Radial pulses intact and symmetrical No calf tenderness Psychiatric: Alert and oriented to person, place Appropriate affect fair judgement Neuro Muscles Strength 4/5 in all 4 extremities Sensation to light touch grossly present throughout Cranial nerves II-XII grossly intact No focal sensory deficits Lymphatics: no palpable cervical or supraclavicular , or inguinal lymph nodes Results CBC & Chem 7: 04/29/20 21:33 04/29/20 12:47 Labs: Abnormal Lab Results - Last 24 Hours (Table) 04/29/20 04/29/20 Range/Units 12:47 12:47 WBC 12.8 H (3.8-10.6) k/uL RBC 3.63 L (4.30-5.90) m/uL Hgb 11.2 L (13.0-17.5) gm/dL Hct 32.7 L (39.0-53.0) % RDW 17.7 H (11.5-15.5) % Neutrophils # 10.3 H (1.3-7.7) k/uL Lymphocytes # 0.9 L (1.0-4.8) k/uL Monocytes # 1.2 H (0-1.0) k/uL Chloride 110 H (98-107) mmol/L Carbon Dioxide 18 L (22-30) mmol/L Glucose 125 H (74-99) mg/dL Calcium 8.1 L (8.4-10.2) mg/dL AST 74 H (17-59) U/L ALT 99 H (4-49) U/L Alkaline Phosphatase 199 H (38-126) U/L Total Protein 5.5 L (6.3-8.2) g/dL Albumin 2.6 L (3.5-5.0) g/dL Assessment and Plan Assessment: acute blood loss anemia secondary to left buttock hematoma hold anticoagulation , close monitor of pulmonary status, recent diagnosis of acute PE on April 18 vascular consultation to explore option for IVC filter blood transfusion for hemoglobin <7 resume anticoagulation if hemoglobin stable for >24 hours CBC q 12 hours SVT , resume verapamil elevated TSH with normal Free T4 echocardiogram with preserved LVEF cardio consult transaction processor hypertension , resume home meds DM , resume long acting insulin , and insulin sliding scale stage 4 lung cancer with mets to brain frequent hospitalization generalized progressive weakness PT/OT consutl hospice evaluation social service coordinator for discharge planning, patient prefers home with home care supplemetal oxygen as needed to keep oxygen sat >92 % CODE STATUS:full code DVT prophylaxis: mechanical due to left buttock hematoma Discussed with: Patient, ER, RN Anticipated length of stay > than [address]: home A total of 75 minutes was spent on the care of this complex patient more than 50% of the time was spent in counseling and care coordination.
--- NOTE | 2020-04-29 23:07 | P.HPADDEND ---
H&P Addendum H&P Addendum Date: 04/29/20 Advanced Care Planning Active diagnoses: Acute blood loss anemia left hip hematoma SVT Metastatic lung cancer Background: The patient was admitted for treatment of acute blood loss anemia left hip hematoma Discussion: Person(s) present and participating in discussion: The patient, myself, and the over the phone Summary: Patient understands that he has stage IV lung cancer his initial goal was to prolonged his life and by time by pursuing treatment he understands that cure from stage IV cancer is difficult. He has recently had frequent hospitalization to the hospital with recent diagnosis of PE, supraventricular tachycardia, and now presenting with left hip hematoma and anemia. He never pictured prolonging his life to spend in the hospital he doesn't like keep coming back o te hospital. Patient would like to get hospice evaluation to weigh his options as he prefers to maximize his time at home and be comfortable. While continue to treat his underlying conditions. Patient would like also to get some physical therapy to get more strength as he noticed that his stamina has dropped significantly due to frequent hospitalization and now he is having difficulty in ambulation and standing up. Patient would like to continue to be a full code and to pursue CPR and resuscitation if he suffers from cardiopulmonary arrest he is not sure if he would like to have intubation and vent support and he would like to talk about that with his and the hospice team to be able to make a decision Time spent: Total time spent face to face in education and discussion directly related to advanced care plannin minutes
[2020-04-30 06:38] LABS: Glucose,Whole Blood 100 mg/dL (75-99)
[2020-04-30] MEDS: INSULIN ASPART (NovoLOG) 100 UNIT/ML VIAL SQ SCH ×3 (06:49→17:21)
[2020-04-30 07:35] LABS: Anisocytosis Slight; Basophils # (A) 0.1 k/uL (0-0.2); Basophils % (A) 1 %; Eosinophils # (A) 0.4 k/uL (0-0.7); Eosinophils % (A) 4 %; HCT 29.6 % (39.0-53.0); HGB 9.6 gm/dL (13.0-17.5); Lymphocytes # (A) 0.7 k/uL (1.0-4.8); Lymphocytes % (A) 7 %; MCHC 32.5 g/dL (31.0-37.0); MCV 92.3 fL (80.0-100.0); Mean Platelet Volume 8.3; Monocytes # (A) 0.8 k/uL (0-1.0); Monocytes % (A) 9 %; Neutrophils # (A) 7.5 k/uL (1.3-7.7); Neutrophils % (A) 78 %; Platelet Count 273 k/uL (150-450); RBC 3.21 m/uL (4.30-5.90); RDW 18.2 % (11.5-15.5); WBC 9.7 k/uL (3.8-10.6)
[2020-04-30 07:58] LABS: Cholesterol 94 mg/dL (<200); HDL Cholesterol 19 mg/dL (40-60); LDL Cholesterol,Calculated 57 mg/dL (0-99); Triglycerides 90 mg/dL (<150)
[2020-04-30] MEDS ORDERED: ASPIRIN 325 MG TAB PO SCH (09:00)
--- NOTE | 2020-04-30 09:07 | P.GSCN ---
History of Present Illness History of present illness: 85-year-old white male I was consulted for placement of vena cava filter. Patient has a left hip acute hematoma with blood loss. Patient has history of 4 pulmonary embolism and patient returned Lovenox patient is a full code. Medical history history of diabetes, history of hypertension, history of supraventricular tachycardia, patient has history of metastatic lung cancer Neck examination neck supple no bruit appreciated Chest is clear breath sounds present Abdomen soft nontender femoral pulses are present patient has ecchymosis of the left hip area. Plan is we will discuss with internal medicine and family if all agreed. 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 PE 04/16/20. Obesity. squamous cell carcinoma 7. Type 2 DM. malignant melanoma in situ of skin of anterior chest 11/27/17. chronic bronchitis. mild cognitive impairment. Brain metastasis . 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 Bacteremia d/t streptococcus- shingles. sepsis. neuropathy. actinic ke ratoses. colonic adenoma, IBS. Arthritis of knee. Ascending aorta dilatation. lung nodules. ischemic stroke 05/28/2014. essential htn History of Any Multi-Drug Resistant Organisms: None Reported Additional Past Surgical History / Comment(s): squamous cell cancer removal right braun, cataracts- removed Past Anesthesia/Blood Transfusion Reactions: No Reported Reaction Past Psychological History: No Psychological Hx Reported Smoking Status: Former smoker Past Alcohol Use History: Rare Past Drug Use History: None Reported - Past Family History Mother Family Medical History: CVA/TIA Father Family Medical History: Congestive Heart Failure (CHF), Coronary Artery Disease (CAD) Medications and Allergies Home Medications Medication Instructions Recorded Confirmed Type Atorvastatin [Lipitor] 80 mg PO HS 05/08/17 04/29/20 History Finasteride [Proscar] 5 mg PO HS 05/08/17 04/29/20 History Insulin Glargine,Hum.rec.anlog 36 unit SQ HS 05/08/17 04/29/20 History [Lantus Solostar] Albuterol Inhaler [Ventolin Hfa 2 puff INHALATION RT-Q4H PRN 04/27/20 04/29/20 History Inhaler] Aspirin EC [Ecotrin Low Dose] 81 mg PO DAILY 04/27/20 04/29/20 History Benzonatate [Tessalon Perles] 100 mg PO TID PRN 04/27/20 04/29/20 History Cholecalciferol [Vitamin D3] 400 unit PO DAILY 04/27/20 04/29/20 History Enoxaparin [Lovenox] 80 mg SQ Q12H 04/27/20 04/29/20 History Galantamine HBr [Razadyne ER] 24 mg PO W/BRKFST 04/27/20 04/29/20 History Multivit-Min/FA/Lycopen/Lutein 1 tab PO DAILY 04/27/20 04/29/20 History [Centrum Silver Tablet] Tiotropium 18 Mcg/Puff [Spiriva] 2 cap INHALATION RT-DAILY 04/27/20 04/29/20 History Vit C/E/Zn/Coppr/Lutein/Zeaxan 1 cap PO BID 04/27/20 04/29/20 History [Preservision Areds 2 Softgel] Verapamil [Isoptin] 40 mg PO TID #90 tab 04/28/20 04/29/20 Rx Allergies Allergy/AdvReac Type Severity Reaction Status Date / Time lisinopril AdvReac Cough Verified 04/29/20 13:44 metformin AdvReac Nausea & Verified 04/29/20 13:44 Vomiting & Diarrhea Surgical - Exam Vital Signs Temp Pulse Resp BP Pulse Ox 98.2 F 113 H 18 97/57 94 L 04/29/20 12:27 04/29/20 12:27 04/29/20 12:27 04/29/20 12:27 04/29/20 12:27 Results - Labs 04/30/20 06:35 04/29/20 12:47 Abnormal Lab Results - Last 24 Hours (Table) 04/29/20 04/29/20 04/29/20 Range/Units 12:47 12:47 21:33 WBC 12.8 H (3.8-10.6) k/uL RBC 3.63 L 3.13 L (4.30-5.90) m/uL Hgb 11.2 L 9.6 L D (13.0-17.5) gm/dL Hct 32.7 L 28.7 L (39.0-53.0) % RDW 17.7 H 17.8 H (11.5-15.5) % Neutrophils # 10.3 H (1.3-7.7) k/uL Lymphocytes # 0.9 L 0.9 L (1.0-4.8) k/uL Monocytes # 1.2 H (0-1.0) k/uL Chloride 110 H (98-107) mmol/L Carbon Dioxide 18 L (22-30) mmol/L Glucose 125 H (74-99) mg/dL POC Glucose (mg/dL) (75-99) mg/dL Calcium 8.1 L (8.4-10.2) mg/dL AST 74 H (17-59) U/L ALT 99 H (4-49) U/L Alkaline Phosphatase 199 H (38-126) U/L Total Protein 5.5 L (6.3-8.2) g/dL Albumin 2.6 L (3.5-5.0) g/dL HDL Cholesterol (40-60) mg/dL 04/30/20 04/30/20 04/30/20 Range/Units 06:35 06:35 06:37 WBC (3.8-10.6) k/uL RBC 3.21 L (4.30-5.90) m/uL Hgb 9.6 L (13.0-17.5) gm/dL Hct 29.6 L (39.0-53.0) % RDW 18.2 H (11.5-15.5) % Neutrophils # (1.3-7.7) k/uL Lymphocytes # 0.7 L (1.0-4.8) k/uL Monocytes # (0-1.0) k/uL Chloride (98-107) mmol/L Carbon Dioxide (22-30) mmol/L Glucose (74-99) mg/dL POC Glucose (mg/dL) 100 H (75-99) mg/dL Calcium (8.4-10.2) mg/dL AST (17-59) U/L ALT (4-49) U/L Alkaline Phosphatase (38-126) U/L Total Protein (6.3-8.2) g/dL Albumin (3.5-5.0) g/dL HDL Cholesterol 19 L (40-60) mg/dL Diabetes panel 04/29/20 04/30/20 Range/Units 12:47 06:35 Sodium 137 (137-145) mmol/L Potassium 3.7 (3.5-5.1) mmol/L Chloride 110 H (98-107) mmol/L Carbon Dioxide 18 L (22-30) mmol/L BUN 17 (9-20) mg/dL Creatinine 1.11 (0.66-1.25) mg/dL Glucose 125 H (74-99) mg/dL Calcium 8.1 L (8.4-10.2) mg/dL AST 74 H (17-59) U/L ALT 99 H (4-49) U/L Alkaline Phosphatase 199 H (38-126) U/L Total Protein 5.5 L (6.3-8.2) g/dL Albumin 2.6 L (3.5-5.0) g/dL Triglycerides 90 (<150) mg/dL HDL Cholesterol 19 L (40-60) mg/dL Calcium panel 04/29/20 Range/Units 12:47 Calcium 8.1 L (8.4-10.2) mg/dL Albumin 2.6 L (3.5-5.0) g/dL Pituitary panel 04/29/20 Range/Units 12:47 Sodium 137 (137-145) mmol/L Potassium 3.7 (3.5-5.1) mmol/L Chloride 110 H (98-107) mmol/L Carbon Dioxide 18 L (22-30) mmol/L BUN 17 (9-20) mg/dL Creatinine 1.11 (0.66-1.25) mg/dL Glucose 125 H (74-99) mg/dL Calcium 8.1 L (8.4-10.2) mg/dL Adrenal panel 04/29/20 Range/Units 12:47 Sodium 137 (137-145) mmol/L Potassium 3.7 (3.5-5.1) mmol/L Chloride 110 H (98-107) mmol/L Carbon Dioxide 18 L (22-30) mmol/L BUN 17 (9-20) mg/dL Creatinine 1.11 (0.66-1.25) mg/dL Glucose 125 H (74-99) mg/dL Calcium 8.1 L (8.4-10.2) mg/dL Total Bilirubin 1.2 (0.2-1.3) mg/dL AST 74 H (17-59) U/L ALT 99 H (4-49) U/L Alkaline Phosphatase 199 H (38-126) U/L Total Protein 5.5 L (6.3-8.2) g/dL Albumin 2.6 L (3.5-5.0) g/dL
[2020-04-30] MEDS: IPRATROPIUM 0.5 MG/2.5 ML NEBU INHALATION SCH ×4 (09:16→20:00)
[2020-04-30] MEDS: VERAPAMIL 40 MG TAB PO SCH ×3 (10:02→21:35)
[2020-04-30] MEDS: DONEPEZIL 10 MG TAB PO SCH (10:02)
--- NOTE | 2020-04-30 10:22 | CONS ---
CONSULTATION Mr. Deleon is an 85-year-old male who was just discharged from the hospital, readmitted with evidence of a hematoma on the left hip. The patient has a history of stage IV lung cancer with metastasis to the brain, undergoing radiation therapy, was admitted on 04/27 with SVT, broke in with adenosine. His echocardiogram showed a preserved ventricular size and systolic function. Apparently after discharge his noted a hematoma on the left hip and was sent back to the emergency room. Patient has a history of pulmonary embolism, has been on Lovenox. When the EMS saw the patient today he has had an episode of tachycardia. At this time he is in sinus mechanism. I reviewed his EKG shows a short burst of probable SVT or sinus tachycardia. He is awake, alert. He denies any symptoms of chest pain. He denies any dizziness, palpitation. He has no has not had any further episode of SVT. He has no prior documented history of myocardial infarction or history of CHF. His coronary risk factors are remarkable for remote history of smoking. He has history of diabetes, hyperlipidemia and hypertension. REVIEW OF SYSTEMS: RESPIRATORY SYSTEM: He has mild dyspnea on exertion. He denies any wheezing or recent cough. GI SYSTEM: No recent GI bleeding, no peptic ulcer disease. SYSTEM: No dysuria or hematuria. NERVOUS SYSTEM: No history of seizure. His medication at home included verapamil 40 mg t.i.d., Proscar, Lovenox 80 mg subcu q.12 hours, Lipitor 80 mg daily, aspirin once a day. PHYSICAL EXAMINATION: Blood pressure 100/58 with a heart in the 70s. HEAD: Normocephalic. EYES: Sclerae nonicteric. NECK: Good upstroke, no bruit. LUNGS: With mild decrease in the breath sounds, no wheezes. HEART: Regular rate and rhythm, S1, S2. No S3 with systolic murmur, no diastolic murmur, no rub. ABDOMEN: Soft, nontender, positive bowel sounds, no organomegaly. EXTREMITIES: No significant edema. Left hip with hematoma noted. LAB DATA: Revealed a hemoglobin of 9.6. It was 11.2 in the past. His troponin 0.014, 0.013. His BUN and creatinine 17 and 1.1. AST of 74, ALT of 99. NT proBNP of 904. His EKG revealed a sinus mechanism with left axis deviation rate of 114, poor R-wave progression. Chest x-ray shows mid right lung lesion. IMPRESSION: 1. Left hip hematoma, probably related to the Lovenox that the patient is on because of the recent diagnosis of pulmonary embolism. 2. Lung cancer with brain metastasis. 3. SVT, remains in sinus mechanism with preserved systolic function. 4. History of diabetes. 5. Anemia related to the hematoma. RECOMMENDATION: From the cardiac standpoint, the patient is stable. His Lovenox is on hold at this time, but that needs to be re-initiated. I will continue on the verapamil at this time. I will hold his aspirin. Depending on his progress, further recommendation will be made. Thank you for this consult. Will follow with you. HAILEY / IJN: [id number] /
[2020-04-30] MEDS ORDERED: SODIUM CHLORIDE 0.9% 250 ML IV ONE (11:40)
[2020-04-30] MEDS ORDERED: LIDOCAINE 1% INJ 10MG/ML (20 ML MDV) SQ ONE (11:51)
[2020-04-30] MEDS ORDERED: MIDAZOLAM 2 MG/2 ML VIAL IV ONE (11:51)
[2020-04-30] MEDS ORDERED: IOPAMIDOL-250 100ML BTL IV ONE (12:26)
--- NOTE | 2020-04-30 13:49 | P.PN ---
Subjective Progress Note Date: 04/30/20 Patient is an 85-year-old male with a PMH of stage IV lung CA (currently undergoing radiation therapy but no chemotherapy, following with [facility]), type II DM, and hypertension who presented to the emergency room with complaints of left hip pain and discoloration. Of note, the patient was recently discharged the hospital on 04/28 after a 2 day hospital stay for SVT. The patient had also been started on Lovenox for an acute PE on 04/18. Patient had reported no trauma to the site nor any falls. The patient's was the one who had activated EMS after she noticed the bruising on the left hip. The patient was also noted to be in SVT upon presentation. The Lovenox was held and the patient was admitted for further monitoring. The patient was seen at the bedside on 04/30. He reported only mild pain at the left hip, 3 out of 10. Denied any additional complaints. Denied chest pain, shortness of breath, palpitations, nausea, vomiting, fever, chills, cough. Denied weakness or numbness. The patient underwent an IVC filter placement earlier today after detailed discussions between the and the patient's primary at [facility] and vascular surgeon performing the procedure. General: Non-toxic, in no acute distress, appears stated age HEENT: NC/AT, anicteric sclerae, moist conjunctiva, no lid-lag, PERRLA Cardiovascular: S1/S2 wnl, no murmurs, rubs, or gallops Lungs: Clear to auscultation, normal respiratory effort, no accessory muscle use Abdominal: Soft, non-tender, non-distended, no guarding, rebound, or rigidity Skin: Left hip large area of ecchymosis noted with minimal tenderness, hard to t ouch, warm, dry Extremities: No edema or contractures Psychiatric: Alert and oriented to person and place, not oriented to time appropriate affect Neuro: CN II-XII grossly intact, Strength 4/5 in all 4 extremities, Speech intact, Sensation to light touch grossly intact throughout Assessment/plan Acute blood loss anemia secondary to left hip hematoma -Continue to hold Lovenox at this time -- will resume in a.m. (~ 48 hours) if hemoglobin continues to be stable -Status post IVC filter placement on 04/30 -Continue to monitor CBC every 12 hourly -Transfuse as needed Recent diagnosis of PE -Lovenox currently being held for a few 48 hours due to acute left hip hematoma SVT -Continue with verapamil home dose -Continue cardiac monitoring -Cardiology recommendations appreciated Type II DM -Continue with home Levemir dose -Insulin sliding scale with blood glucose monitoring Stage IV lung CA with metastases to brain -Undergoing radiotherapy and not currently on chemotherapy -Following at [facility] -Hospice consulted upon patient's request -PT/OT consult Hypertension -Continue with home meds COPD -C/w inhalers DVT prophylaxis -IPCDs Discussed with: Patient Anticipated discharge date: in 1-[address]: home A total of 35 minutes was spent on the care of this complex patient more than 50% of the time was spent in counseling and care coordination. Objective - Vital Signs Vital signs: Vital Signs Temp 97.8 F 04/30/20 08:00 Pulse 98 04/30/20 08:00 Resp 18 04/30/20 08:00 BP 93/50 04/30/20 08:00 Pulse Ox 97 04/30/20 08:00 Intake & Output 04/29/20 04/30/20 04/30/20 18:59 06:59 18:59 Intake Total 125 840 50 Output Total 300 Balance 125 840 -250 Weight 83.915 kg 82 kg Intake: IV 50 Intake, IV Titration 300 Amount Sodium Chloride 0.9% 1, 300 000 ml @ 75 mls/hr IV . [id number] [facility] Rx#:[id number] Oral 125 540 Output: Urine 300 Other: Voiding Method Urinal Urinal Urinal Diaper Diaper Diaper # Voids 1 1 # Bowel Movements 1 - Labs CBC & Chem 7: 04/30/20 06:35 04/29/20 12:47 Labs: Abnormal Lab Results - Last 24 Hours (Table) 04/29/20 04/30/20 04/30/20 Range/Units 21:33 06:35 06:35 RBC 3.13 L 3.21 L (4.30-5.90) m/uL Hgb 9.6 L D 9.6 L (13.0-17.5) gm/dL Hct 28.7 L 29.6 L (39.0-53.0) % RDW 17.8 H 18.2 H (11.5-15.5) % Lymphocytes # 0.9 L 0.7 L (1.0-4.8) k/uL POC Glucose (mg/dL) (75-99) mg/dL HDL Cholesterol 19 L (40-60) mg/dL 04/30/20 Range/Units 06:37 RBC (4.30-5.90) m/uL Hgb (13.0-17.5) gm/dL Hct (39.0-53.0) % RDW (11.5-15.5) % Lymphocytes # (1.0-4.8) k/uL POC Glucose (mg/dL) 100 H (75-99) mg/dL HDL Cholesterol (40-60) mg/dL
[2020-04-30 16:38] LABS: Glucose,Whole Blood 155 mg/dL (75-99)
[2020-04-30] MEDS: SODIUM CHLORIDE 0.9% 1,000 ML IV SCH ×2 (17:17→23:46)
--- NOTE | 2020-04-30 17:25 | PCN ---
PROCEDURE NOTE PREOPERATIVE DIAGNOSIS: Pulmonary embolism with external bleeding to the left PICC. POSTOPERATIVE DIAGNOSIS: Pulmonary embolism with external bleeding to the left PICC. PROCEDURE: Vena cavogram and placement of a Tulip infrarenal filter. SEDATION TIME: 40 minutes. PROCEDURE DESCRIPTION: This patient has a history of pulmonary embolism and patient is on anticoagulation. Patient developed large hematoma to the left hip, consulted for placement of a filter. Discussed with the and his family physician at [facility]. They all agreed to proceed for filter. Patient was brought to the lab support technician. Right and left groins were prepped and draped in the usual sterile manner, under IV sedation and 1% lidocaine infiltrate in the right groin. On ultrasound guided micropuncture introduced right common femoral vein and micropuncture guidewire was passed and 4-Kyrgyz sheath advanced on top of the guidewire. Then we passed a regular guidewire and 5-Kyrgyz sheath was placed, flushed with heparin, saline and that, the guide was parked above the renal veins and the sheath was advanced on the top of the guidewire. Venogram was performed through the pigtail catheter and the vena cava was found to be patent. No clot was seen and the renal vein was shadowed by the large stomach shadow. After that, we placed the Tulip filter through the sheath, below the renal vein and the sheath was removed. Pressure was held and patient tolerated the procedure well and transferred to his floor in her satisfactory condition, advised bedrest for 4 hours. MMODL / IJN: [id number] /
[2020-04-30 18:35] LABS: Anisocytosis Slight; Basophils % (A) 0 %; Eosinophils # (A) 0.4 k/uL (0-0.7); Eosinophils % (A) 4 %; HCT 28.7 % (39.0-53.0); HGB 9.3 gm/dL (13.0-17.5); Lymphocytes # (A) 0.6 k/uL (1.0-4.8); Lymphocytes % (A) 6 %; MCH 30.2 pg (25.0-35.0); MCHC 32.5 g/dL (31.0-37.0); Mean Platelet Volume 11.8; Monocytes # (A) 0.8 k/uL (0-1.0); Monocytes % (A) 9 %; Neutrophils # (A) 7.6 k/uL (1.3-7.7); Neutrophils % (A) 79 %; Platelet Count 175 k/uL (150-450); RBC 3.09 m/uL (4.30-5.90); RDW 18.3 % (11.5-15.5); WBC 9.6 k/uL (3.8-10.6)
[2020-04-30 20:39] LABS: Glucose,Whole Blood 156 mg/dL (75-99)
[2020-04-30] MEDS: FINASTERIDE 5 MG TAB PO SCH (21:35)
[2020-04-30] MEDS: ATORVASTATIN 80 MG TAB PO SCH (21:35)
[2020-04-30] MEDS: INSULIN DETEMIR (LEVEMIR) 100 UNIT/ML SYR SQ SCH (21:35)
[2020-05-01 06:10] LABS: Glucose,Whole Blood 91 mg/dL (75-99)
[2020-05-01] MEDS: INSULIN ASPART (NovoLOG) 100 UNIT/ML VIAL SQ SCH ×3 (06:17→17:01)
[2020-05-01 08:51] LABS: Anisocytosis Slight; HCT 27.7 % (39.0-53.0); MCHC 32.6 g/dL (31.0-37.0); MCV 92.1 fL (80.0-100.0); Mean Platelet Volume 8.7; Platelet Count 255 k/uL (150-450); RDW 18.4 % (11.5-15.5); WBC 10.6 k/uL (3.8-10.6)
[2020-05-01] MEDS: IPRATROPIUM 0.5 MG/2.5 ML NEBU INHALATION SCH ×4 (09:23→19:40)
[2020-05-01] MEDS: VERAPAMIL 40 MG TAB PO SCH ×3 (10:35→20:59)
[2020-05-01] MEDS: DONEPEZIL 10 MG TAB PO SCH (10:35)
[2020-05-01 11:36] LABS: Glucose,Whole Blood 98 mg/dL (75-99)
--- NOTE | 2020-05-01 12:19 | P.PN ---
Subjective This is a pleasant 85-year-old male past medical history significant for stage IV lung cancer with metastases to the brain currently undergoing radiation, history of SVT on April 27 that broke through with adenosine and diabetes mellitus. He denies any prior history of coronary artery disease. He is seen and examined sitting up in bed undergoing a breathing treatment. He denies symptoms of chest pain, dizziness, palpitations or worsening shortness of breath. Telemetry tracings are unremarkable for any acute arrhythmias. Blood pressure 130/57 heart rate 88 afebrile maintaining oxygen saturation on nasal cannula. Currently maintained on verapamil 40 mg 3 times a day and atorvastatin 80 mg at bedtime. Laboratory data reviewed, WBC 10.6, hemoglobin 9 and platelets 255. He underwent placement of vena cava filter yesterday per Dr. Mcghee, GENERAL: Well-appearing, well-nourished and in no acute distress. NECK: Supple without JVD or thyromegaly. LUNGS: Scattered rhonchi, no wheezes or rales. Respiration equal and unlabored. HEART: Regular rate and rhythm with systolic ejection murmur at the left sternal border, rubs or gallops. S1 and S2 heard. EXTREMITIES: Normal range of motion, no edema. No clubbing or cyanosis. Peripheral pulses intact. ASSESSMENT Left hip hematoma Lung cancer with brain metastasis SVT currently in sinus mechanism Diabetes mellitus Anemia secondary to hematoma PLAN Stable from a cardiac perspective. No further episodes of SVT noted. We will follow along as needed, please call with further questions or concerns. Nurse Practitioner note has been reviewed, I agree with a documented findings and plan of care. Patient was seen and examined. Objective - Vital Signs Vital signs: Vital Signs Temp 98.1 F 05/01/20 08:15 Pulse 88 05/01/20 09:40 Resp 16 05/01/20 08:15 BP 130/57 05/01/20 08:15 Pulse Ox 94 L 05/01/20 08:15 Intake & Output 04/30/20 05/01/20 05/01/20 18:59 06:59 18:59 Intake Total 880 600 Output Total 1700 120 100 Balance -820 -120 500 Weight 87 kg Intake: IV 50 Intake, IV Titration 600 Amount Sodium Chloride 0.9% 1, 600 000 ml @ 75 mls/hr IV . [id number] [facility] Rx#:[id number] Oral 230 600 Output: Urine 1700 120 100 Other: Voiding Method Urinal Urinal Urinal Diaper Diaper Diaper Incontinent Incontinent # Voids 5 1 1 # Bowel Movements 1 1 - Labs CBC & Chem 7: 05/01/20 07:49 04/29/20 12:47 Labs: Abnormal Lab Results - Last 24 Hours (Table) 04/30/20 04/30/20 04/30/20 Range/Units 16:37 18:17 20:37 RBC 3.09 L (4.30-5.90) m/uL Hgb 9.3 L (13.0-17.5) gm/dL Hct 28.7 L (39.0-53.0) % RDW 18.3 H (11.5-15.5) % Lymphocytes # 0.6 L (1.0-4.8) k/uL POC Glucose (mg/dL) 155 H 156 H (75-99) mg/dL 05/01/20 Range/Units 07:49 RBC 3.00 L (4.30-5.90) m/uL Hgb 9.0 L (13.0-17.5) gm/dL Hct 27.7 L (39.0-53.0) % RDW 18.4 H (11.5-15.5) % Lymphocytes # (1.0-4.8) k/uL POC Glucose (mg/dL) (75-99) mg/dL
[2020-05-01 16:24] LABS: Glucose,Whole Blood 112 mg/dL (75-99)
--- NOTE | 2020-05-01 17:01 | P.PN ---
Subjective Progress Note Date: 05/01/20 Patient is an 85-year-old male with a PMH of stage IV lung CA (currently undergoing radiation therapy but no chemotherapy, following with [facility]), type II DM, and hypertension who presented to the emergency room with complaints of left hip pain and discoloration. Of note, the patient was r ecently discharged the hospital on 04/28 after a 2 day hospital stay for SVT. The patient had also been started on Lovenox for an acute PE on 04/18. Patient had reported no trauma to the site nor any falls. The patient's was the one who had activated EMS after she noticed the bruising on the left hip. The patient was also noted to be in SVT upon presentation. The Lovenox was held and the patient was admitted for further monitoring. The patient underwent an IVC filter placement on 04/30. The patient was seen at the bedside on 05/01. Patient reports minimal left hip pain 2/10. Denied any additional complaints. Denied chest pain, shortness of breath, fever, chills, nausea, vomiting. The patient qualified for subacute rehab though discussed the case with the in detail who noted that she does not wish for him to go to a rehab facility due to the risk of Covid exposure. She reports that she has arranged for home PT through visiting nurses. General: Non-toxic, in no acute distress, appears stated age HEENT: NC/AT, anicteric sclerae, moist conjunctiva, no lid-lag, PERRLA Cardiovascular: S1/S2 wnl, no murmurs, rubs, or gallops Lungs: Clear to auscultation, normal respiratory effort, no accessory muscle use Abdominal: Soft, non-tender, non-distended, no guarding, rebound, or rigidity Skin: Left hip large area of ecchymosis noted with minimal tenderness, hard to touch, warm, dry Extremities: No edema or contractures Psychiatric: Alert and oriented to person and place, not oriented to time appropriate affect Neuro: CN II-XII grossly intact, Strength 3-4/5 in all 4 extremities, Speech intact, Sensation to light touch grossly intact throughout Assessment/plan Acute blood loss anemia secondary to left hip hematoma -Status post IVC filter placement on 04/30 -Hold off on further Lovenox at this time due to the high risk of bleeding -Transfuse for Hgb < 7 Recent diagnosis of PE -Patient poor candidate for Lovenox due to recent bleeding -S/p IVC filter placement SVT -Continue with verapamil home dose -Continue cardiac monitoring -Cardiology recommendations appreciated Type II DM -Continue with home Levemir dose -Insulin sliding scale with blood glucose monitoring 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 Objective - Vital Signs Vital signs: Vital Signs Temp 98.2 F 05/01/20 12:00 Pulse 82 05/01/20 16:12 Resp 16 05/01/20 12:00 BP 110/55 05/01/20 12:00 Pulse Ox 98 05/01/20 12:00 Intake & Output 04/30/20 05/01/20 05/01/20 18:59 06:59 18:59 Intake Total 880 720 Output Total 1700 120 400 Balance -820 -120 320 Weight 87 kg Intake: IV 50 Intake, IV Titration 600 Amount Sodium Chloride 0.9% 1, 600 000 ml @ 75 mls/hr IV . [id number] [facility] Rx#:[id number] Oral 230 720 Output: Urine 1700 120 400 Other: Voiding Method Urinal Urinal Urinal Diaper Diaper Diaper Incontinent Incontinent Incontinent # Voids 5 1 1 # Bowel Movements 1 1 - Labs CBC & Chem 7: 05/01/20 07:49 04/29/20 12:47 Labs: Abnormal Lab Results - Last 24 Hours (Table) 04/30/20 04/30/20 05/01/20 Range/Units 18:17 20:37 07:49 RBC 3.09 L 3.00 L (4.30-5.90) m/uL Hgb 9.3 L 9.0 L (13.0-17.5) gm/dL Hct 28.7 L 27.7 L (39.0-53.0) % RDW 18.3 H 18.4 H (11.5-15.5) % Lymphocytes # 0.6 L (1.0-4.8) k/uL POC Glucose (mg/dL) 156 H (75-99) mg/dL 05/01/20 Range/Units 16:22 RBC (4.30-5.90) m/uL Hgb (13.0-17.5) gm/dL Hct (39.0-53.0) % RDW (11.5-15.5) % Lymphocytes # (1.0-4.8) k/uL POC Glucose (mg/dL) 112 H (75-99) mg/dL
[2020-05-01] MEDS: SODIUM CHLORIDE 0.9% 1,000 ML IV SCH (18:30)
[2020-05-01 19:58] LABS: Glucose,Whole Blood 82 mg/dL (75-99)
[2020-05-01] MEDS: ATORVASTATIN 80 MG TAB PO SCH (20:59)
[2020-05-01] MEDS: FINASTERIDE 5 MG TAB PO SCH (20:59)
[2020-05-01] MEDS: INSULIN DETEMIR (LEVEMIR) 100 UNIT/ML SYR SQ SCH (20:59)
[2020-05-02 06:13] LABS: Glucose,Whole Blood 73 mg/dL (75-99)
[2020-05-02] MEDS: INSULIN ASPART (NovoLOG) 100 UNIT/ML VIAL SQ SCH ×3 (06:15→17:06)
[2020-05-02] MEDS: SODIUM CHLORIDE 0.9% 1,000 ML IV SCH ×2 (06:16→15:52)
[2020-05-02 08:11] LABS: Anisocytosis Slight; HCT 28.3 % (39.0-53.0); HGB 9.5 gm/dL (13.0-17.5); MCH 30.9 pg (25.0-35.0); MCHC 33.6 g/dL (31.0-37.0); MCV 91.9 fL (80.0-100.0); Platelet Count 329 k/uL (150-450); RBC 3.07 m/uL (4.30-5.90); RDW 18.4 % (11.5-15.5); WBC 9.7 k/uL (3.8-10.6)
[2020-05-02] MEDS: IPRATROPIUM 0.5 MG/2.5 ML NEBU INHALATION SCH ×4 (08:49→19:43)
[2020-05-02] MEDS: DONEPEZIL 10 MG TAB PO SCH (09:21)
[2020-05-02] MEDS: VERAPAMIL 40 MG TAB PO SCH ×3 (09:21→20:32)
[2020-05-02 10:01] LABS: African American GFR (CKD) >90 (>60 ml/min/1.73 sqM); Anion Gap 3 mmol/L; Blood Urea Nitrogen 13 mg/dL (9-20); Calcium 7.6 mg/dL (8.4-10.2); Carbon Dioxide 27 mmol/L (22-30); Chloride 109 mmol/L (98-107); Glucose 55 mg/dL (74-99); Magnesium 1.9 mg/dL (1.6-2.3); Non-African American GFR(CKD) 82 (>60 ml/min/1.73 sqM); Potassium 3.9 mmol/L (3.5-5.1); Sodium 139 mmol/L (137-145)
--- NOTE | 2020-05-02 11:28 | CT ---
EXAMINATION TYPE: CT brain wo con DATE OF EXAM: 05/02/2020 COMPARISON: None HISTORY: Head injury, known brain mass CT DLP: 1078.[address] of the brain was performed. The ventricles, basal cisterns and sulci overlying the cerebral convexities demonstrate mild enlargem ent. There is no evidence for intracranial hemorrhage or sulcal effacement. There is decreased attenuation about the periventricular white matter and deep white matter of both c erebral hemispheres, compatible with chronic small vessel ischemia. Differential diagnosis does inclu de demyelination. No mass effects are seen.No midline shift. Osseous calvarium is intact. If symptoms persist consider MRI. IMPRESSION: 1. Age related atrophic and chronic small vessel ischemic change without acute intracranial process s een at this time.
[2020-05-02 11:33] LABS: Glucose,Whole Blood 139 mg/dL (75-99)
--- NOTE | 2020-05-02 11:49 | IR ---
Fluoroscopy HISTORY: Inferior vena cava placement 6.1 minutes fluoroscopy time supplied to the referring clinician. 860 intraoperative C-arm images do cument the procedure. See dictated report from vascular surgery.
--- NOTE | 2020-05-02 16:21 | P.PN ---
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 He had initially been admitted for SVT was started on Cardizem and discharged home. His called EMS due to a large bruise over his left hip and he was noted to have a heart rate again to the 220s on EMS arrival. In the ER he underwent extensive evaluation was found have a hemoglobin a slight drop from his baseline. He was noted to be in sinus rhythm. He is admitted for further monitoring. They help with anticoagulation due to his acute blood loss anemia in conjunction with his left buttock hematoma. Vascular was consulted for IVC placement which was completed on 04/30. His Lovenox was held due to concern for continued bleeding and decreasing hemoglobin. Patient seen and examined at bedside. He is pleasantly confused. He denies any shortness of breath, chest pain, overall pain, nausea, or vomiting. General: non toxic, no distress, appears at stated age Derm: Large hematoma on left hip, flank, back, and but are not staying within the lines drawn by nursing, warm, dry Head: atraumatic, normocephalic, symmetric Eyes: EOMI, no lid lag, anicteric sclera Mouth: no lip lesion, mucus membranes moist Cardiovascular: S1S2 reg, no murmur, positive posterior tibial pulse bilateral, Lungs: Rhonchi with faint wheezes right hemithorax , no accessory muscle use Abdominal: soft, nontender to palpation, no guarding, no appreciable organomegaly Ext: no gross muscle atrophy, trace edema, no contractures Neuro: CN II-XI grossly intact, no focal neuro deficits Psych: Alert to being in the hospital, confused to full situation., appropriate affect Acute blood loss anemia, left hip hematoma, recent pulmonary embolism diagnosed on 04/18 -Status post IVC filter 04/30 -Lovenox has been on hold -Hemoglobin appears stable -Patient did have a head contusion on 05/02 when he knocked over an IV pole -Consult hematology oncology regarding long-term anticoagulation in this patient, has been off Lovenox since admission, was anticipating restarting today however IV pole struck him in the head that he knocked over. -Patient receives care for his stage IV metastatic lung cancer a [facility]. 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 Anticipated discharge place: Home with home health A total of 35 minutes was spent on the care of this complex patient more than 50% of the time was spent in counseling and care coordination. Objective - Vital Signs Vital signs: Vital Signs Temp 97.6 F 05/02/20 12:18 Pulse 88 05/02/20 13:04 Resp 22 05/02/20 12:18 BP 121/63 05/02/20 12:18 Pulse Ox 96 05/02/20 12:18 Intake & Output 05/01/20 05/02/20 05/02/20 18:59 06:59 18:59 Intake Total 720 900 240 Output Total 1100 100 Balance -380 900 140 Weight 83.6 kg Intake: Intake, IV Titration 600 Amount Sodium Chloride 0.9% 1, 600 000 ml @ 75 mls/hr IV . [id number] [facility] Rx#:[id number] Oral 720 300 240 Output: Urine 1100 100 Other: Voiding Method Urinal Toilet Diaper Diaper Urinal Incontinent Incontinent Diaper Incontinent # Voids 4 1 1 # Bowel Movements 1 1 1 - Labs CBC & Chem 7: 05/02/20 07:11 05/02/20 07:05 Labs: Abnormal Lab Results - Last 24 Hours (Table) 05/01/20 05/02/20 05/02/20 Range/Units 16:22 06:12 07:05 RBC (4.30-5.90) m/uL Hgb (13.0-17.5) gm/dL Hct (39.0-53.0) % RDW (11.5-15.5) % Chloride 109 H (98-107) mmol/L Glucose 55 L (74-99) mg/dL POC Glucose (mg/dL) 112 H 73 L (75-99) mg/dL Calcium 7.6 L (8.4-10.2) mg/dL 05/02/20 05/02/20 Range/Units 07:11 11:31 RBC 3.07 L (4.30-5.90) m/uL Hgb 9.5 L (13.0-17.5) gm/dL Hct 28.3 L (39.0-53.0) % RDW 18.4 H (11.5-15.5) % Chloride (98-107) mmol/L Glucose (74-99) mg/dL POC Glucose (mg/dL) 139 H (75-99) mg/dL Calcium (8.4-10.2) mg/dL
[2020-05-02 16:45] LABS: Glucose,Whole Blood 111 mg/dL (75-99)
--- NOTE | 2020-05-02 18:19 | P.CONS ---
History of Present Illness - Reason for Consult Consult date: 05/02/20 lung cancer Requesting physician: Gypsy Alvarenga - Chief Complaint hematoma, SVT - History of Present Illness Mr. Deleon is a very pleasant male patient we've been asked to see in regards to lung cancer as well as pulmonary embolism. He states he has a history of lung cancer, he denies any recent treatment. He is not able to give me many more details than that. On chart review patient has been treated at [facility], he has brain metastases, he had pneumonia in March, diagnosed with a PE, was placed on the Lovenox, has received some radiation. Due to extensive bruising and hematoma IVC filter was placed 04/30, anticoagulation discontinued. Pt denies other bleeding. He denies any pain. He is unable to tell me the plans for his cancer. 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 PE 04/16/20. Obesity. squamous cell carcinoma 04/13/17. Type 2 DM. malignant melanoma in situ of skin of anterior chest 11/27/17. chronic bronchitis. mild cognitive impairment. Brain metastasis . 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 Bacteremia d/t streptococcus- shingles. sepsis. neuropathy. actinic keratoses. colonic adenoma, IBS. Arthritis of knee. Ascending aorta dilatation. lung nodules. ischemic stroke 05/28/2014. essential htn History of Any Multi-Drug Resistant Organisms: None Reported Additional Past Surgical History / Comment(s): squamous cell cancer removal right braun, cataracts- removed Past Anesthesia/Blood Transfusion Reactions: No Reported Reaction Past Psychological History: No Psychological Hx Reported Smoking Status: Former smoker Past Alcohol Use History: Rare Past Drug Use History: None Reported - Past Family History Mother Family Medical History: CVA/TIA Father Family Medical History: Congestive Heart Failure (CHF), Coronary Artery Disease (CAD) Medications and Allergies Home Medications Medication Instructions Recorded Confirmed Type Atorvastatin [Lipitor] 80 mg PO HS 05/08/17 04/29/20 History Finasteride [Proscar] 5 mg PO HS 05/08/17 04/29/20 History Insulin Glargine,Hum.rec.anlog 36 unit SQ HS 05/08/17 04/29/20 History [Lantus Solostar] Albuterol Inhaler [Ventolin Hfa 2 puff INHALATION RT-Q4H PRN 04/27/20 04/29/20 History Inhaler] Aspirin EC [Ecotrin Low Dose] 81 mg PO DAILY 04/27/20 04/29/20 History Benzonatate [Tessalon Perles] 100 mg PO TID PRN 04/27/20 04/29/20 History Cholecalciferol [Vitamin D3] 400 unit PO DAILY 04/27/20 04/29/20 History Enoxaparin [Lovenox] 80 mg SQ Q12H 04/27/20 04/29/20 History Galantamine HBr [Razadyne ER] 24 mg PO W/BRKFST 04/27/20 04/29/20 History Multivit-Min/FA/Lycopen/Lutein 1 tab PO DAILY 04/27/20 04/29/20 History [Centrum Silver Tablet] Tiotropium 18 Mcg/Puff [Spiriva] 2 cap INHALATION RT-DAILY 04/27/20 04/29/20 History Vit C/E/Zn/Coppr/Lutein/Zeaxan 1 cap PO BID 04/27/20 04/29/20 History [Preservision Areds 2 Softgel] Verapamil [Isoptin] 40 mg PO TID #90 tab 04/28/20 04/29/20 Rx Allergies Allergy/AdvReac Type Severity Reaction Status Date / Time lisinopril AdvReac Cough Verified 04/29/20 13:44 metformin AdvReac Nausea & Verified 04/29/20 13:44 Vomiting & Diarrhea Physical Exam Vitals: Vital Signs Temp Pulse Pulse Resp BP BP Pulse Ox 05/02/20 16:20 92 05/02/20 16:10 92 05/02/20 16:00 97.6 F 99 19 153/72 96 05/02/20 13:04 88 05/02/20 12:49 92 05/02/20 12:18 97.6 F 97 22 121/63 96 05/02/20 10:25 97.1 F L 100 28 H 129/67 94 L 11/18/20 09:02 84 05/02/20 08:49 84 05/02/20 07:30 98.1 F 83 16 138/65 96 05/02/20 04:00 97.4 F L 114 H 18 128/64 05/01/20 23:22 97.8 F 114 H 16 106/54 95 05/01/20 20:00 98.0 F 93 17 133/71 94 L 05/01/20 19:51 80 18 05/01/20 19:40 82 18 Intake and Output 05/02/20 05/02/20 05/02/20 06:59 14:59 22:59 Intake Total 900 240 Output Total 100 Balance 900 140 Intake: Intake, IV Titration 600 Amount Sodium Chloride 0.9% 1, 600 000 ml @ 75 mls/hr IV . [id number] [facility] Rx#:[id number] Oral 300 240 Output: Urine 100 Other: Voiding Method Toilet Diaper Diaper Urinal Incontinent Incontinent Diaper Incontinent # Voids 1 1 # Bowel Movements 1 1 Weight 83.6 kg - Constitutional patient is pleasant General appearance: cooperative, no acute distress, thin - EENT dry mouth Eyes: anicteric sclerae, EOMI ENT: hearing grossly normal - Neck left supraclavicular fullness - Respiratory Respiratory: bilateral: diminished - Cardiovascular Heart sounds: normal: S1, S2 Abnormal Heart Sounds: systolic murmur, no diastolic murmur, no rub, no S3 Gallop, no S4 Gallop, no click, no other leg Peripheral Edema: bilateral: None - Gastrointestinal General gastrointestinal: normal bowel sounds, soft - Integumentary Integumentary: pale - Neurologic Neurologic: CNII-XII intact - Musculoskeletal Musculoskeletal: generalized weakness - Psychiatric Psychiatric: A&O x's 3, appropriate affect Results CBC & Chem 7: 05/02/20 07:11 05/02/20 07:05 Labs: Abnormal Lab Results - Last 24 Hours (Table) 05/02/20 05/02/20 05/02/20 Range/Units 06:12 07:05 07:11 RBC 3.07 L (4.30-5.90) m/uL Hgb 9.5 L (13.0-17.5) gm/dL Hct 28.3 L (39.0-53.0) % RDW 18.4 H (11.5-15.5) % Chloride 109 H (98-107) mmol/L Glucose 55 L (74-99) mg/dL POC Glucose (mg/dL) 73 L (75-99) mg/dL Calcium 7.6 L (8.4-10.2) mg/dL 05/02/20 05/02/20 Range/Units 11:31 16:43 RBC (4.30-5.90) m/uL Hgb (13.0-17.5) gm/dL Hct (39.0-53.0) % RDW (11.5-15.5) % Chloride (98-107) mmol/L Glucose (74-99) mg/dL POC Glucose (mg/dL) 139 H 111 H (75-99) mg/dL Calcium (8.4-10.2) mg/dL CT Scan - head: report reviewed Assessment and Plan (1) Lung cancer Narrative/Plan: Patient will return to [facility] for plan of care regarding his lung cancer. He did give me his Oncologist name. I will attempt to get ahold of him. Current Visit: Yes Status: Chronic Priority: Medium Code(s): C34.90 - MALIGNANT NEOPLASM OF UNSP PART OF UNSP BRONCHUS OR LUNG SNOMED Code(s): 109474039 (2) Pulmonary embolism Narrative/Plan: Per the chart diagnosed just last month. Patient has an IVC filter placed for protection from lower extremity clots moving to lungs. We will try to figure out why patient is so bruised. If there is a reversible/preventable reason for his bruising need to consider retrying anticoagulation, as long as the benefit outweighs the risk. Continue off anticoagulation for right now. CBC daily. Doppler of BLE for baseline Current Visit: Yes Status: Acute Priority: High Code(s): I26.99 - OTHER PULMONARY EMBOLISM WITHOUT ACUTE COR PULMONALE SNOMED Code(s): 72360612 Plan: Doctor attests: I performed a history and physical examination of this patient, developed impression and plan of care, discussed with dictator. I agree with dictators note, documented as a scribe.
--- NOTE | 2020-05-02 19:30 | US ---
EXAMINATION TYPE: US venous doppler duplex LE DATE OF EXAM: 05/02/2020 7:04 PM COMPARISON: NONE CLINICAL HISTORY: PE diagnosed in Mar. PE diagnosed in March. Patient poor historian. SIDE PERFORMED: Bilateral TECHNIQUE: The lower extremity deep venous system is examined utilizing real time linear array sonog sandy with graded compression, doppler sonography and color-flow sonography. VESSELS IMAGED: Common Femoral Vein Deep Femoral Vein Greater Saphenous Vein * Femoral Vein Popliteal Vein Small Saphenous Vein * Proximal Calf Veins (* superficial vessels) Right Leg: Internal echoes seen within the CFV. This appears to be non-occlusive thrombus. Left Leg: Internal echoes seen within the femoral vein. This appears to be non-occlusive. Limited vi sibility in transverse views due to arterial shadowing. IMPRESSION: Findings suggestive of nonocclusive thrombus in the right common femoral and left femoral veins.
[2020-05-02 20:00] LABS: Glucose,Whole Blood 150 mg/dL (75-99)
[2020-05-02] MEDS: FINASTERIDE 5 MG TAB PO SCH (20:32)
[2020-05-02] MEDS: ATORVASTATIN 80 MG TAB PO SCH (20:32)
[2020-05-02] MEDS ORDERED: INSULIN DETEMIR (LEVEMIR) 100 UNIT/ML SYR SQ SCH (21:00)
[2020-05-02] MEDS ORDERED: ENOXAPARIN 80 MG/0.8 ML SYRINGE SQ SCH (21:00)
[2020-05-03] MEDS: SODIUM CHLORIDE 0.9% 1,000 ML IV SCH (05:24)
[2020-05-03 06:17] LABS: Glucose,Whole Blood 111 mg/dL (75-99)
[2020-05-03] MEDS: INSULIN ASPART (NovoLOG) 100 UNIT/ML VIAL SQ SCH ×3 (06:18→16:53)
[2020-05-03 06:49] LABS: Anisocytosis Slight; Basophils % (A) 1 %; Eosinophils # (A) 0.4 k/uL (0-0.7); Eosinophils % (A) 4 %; HCT 28.4 % (39.0-53.0); HGB 9.4 gm/dL (13.0-17.5); Lymphocytes # (A) 0.6 k/uL (1.0-4.8); Lymphocytes % (A) 6 %; MCH 30.7 pg (25.0-35.0); MCHC 33.1 g/dL (31.0-37.0); MCV 92.7 fL (80.0-100.0); Mean Platelet Volume 9.2; Monocytes # (A) 0.9 k/uL (0-1.0); Monocytes % (A) 10 %; Neutrophils # (A) 7.5 k/uL (1.3-7.7); Neutrophils % (A) 78 %; Platelet Count 248 k/uL (150-450); Poikilocytosis Slight; RBC 3.06 m/uL (4.30-5.90); RDW 18.2 % (11.5-15.5); WBC 9.6 k/uL (3.8-10.6)
[2020-05-03 06:54] LABS: African American GFR (CKD) >90 (>60 ml/min/1.73 sqM); Anion Gap 2 mmol/L; Blood Urea Nitrogen 12 mg/dL (9-20); Calcium 7.3 mg/dL (8.4-10.2); Carbon Dioxide 27 mmol/L (22-30); Chloride 108 mmol/L (98-107); Glucose 103 mg/dL (74-99); Non-African American GFR(CKD) 84 (>60 ml/min/1.73 sqM); Potassium 3.5 mmol/L (3.5-5.1); Sodium 137 mmol/L (137-145)
[2020-05-03] MEDS: IPRATROPIUM 0.5 MG/2.5 ML NEBU INHALATION SCH ×3 (08:16→17:05)
[2020-05-03] MEDS: VERAPAMIL 40 MG TAB PO SCH ×2 (09:12→15:34)
[2020-05-03] MEDS: DONEPEZIL 10 MG TAB PO SCH (09:12)
[2020-05-03 09:30] VITALS: RESP 20
[2020-05-03 11:24] VITALS: TEMP 97.7
[2020-05-03 11:49] LABS: Glucose,Whole Blood 122 mg/dL (75-99)
--- NOTE | 2020-05-03 13:57 | P.DS ---
Providers Date of admission: 04/29/20 13:49 Expected date of discharge: 05/03/20 Attending physician: Gypsy Alvarenga DO Consults: 04/29/20 13:50 Consult Physician Urgent Consulting Provider: Jose David Lewis Consult Reason/Comments: SVT Do you want consulting provider notified?: Yes 04/29/20 22:59 Consult Physician Routine Consulting Provider: Jae Mcghee Consult Reason/Comments: evaluate for IVC filter Do you want consulting provider notified?: Yes, Notify in am 05/02/20 07:58 Consult Physician Routine Consulting Provider: Jose Roberto Freedman Consult Reason/Comments: Lung cancer, PE, Bleeding [facility] patient Do you want consulting provider notified?: Yes Primary care physician: Physician Nonstaff Hospital Course: 85 year old male with DM , lung cancer with mets, hypertension presented to the hospital again due to big echymosis and bruising over his left hip. The bruising extends into his buttocks. He had pain in his left hip associated with it. Patient is on Lovenox due to recent diagnosis of acute PE back on April 18. He was started on lovenox since then. He receives most of his care in [facility]. He states that he is currently is not yet started on cancer treatment. No report of bleeding events. NO REPORT of any trauma ,fall, or injury to the area. Otherwise patient denies any physical complaints, no trouble breathing, dizziness, fever, chills, chest pain nausea or vomiting. he denies any palpitations. When EMS arrived to pick him up his heart rate was in the 200 range. He was given some adenosine and that converted his HR back to NSR. Patient initial hemoglobin in the ED, showed very slight drop from his baseline. He was admitted for further monitoring. He was seen by cardiology, was continued on verapamil. Echo from a previous admission showed preserved EF. No further recommendations were made by cardio. Due to presence of DVT and recent PE, he was seen by vascular surgery, and an IVC filter was placed due to inability to treat him with anticoagulation sec to the hip hematoma which seems to be spontaneous. He was seen by oncology service who agreed with this. AC will be held for now until seen by oncology at the of . His hemoglobin remained stable through the admission and he did not require any blood products transfusion. He was seen by PT, rehab was advised but refused to discharge him to rehab due to COVID risk. He is currently doing well. He will be prescribed a walker upon discharge. Time for discharge 36 min Plan - Discharge Summary New Discharge Prescriptions: Continue Insulin Glargine,Hum.rec.anlog [Lantus Solostar] 36 unit SQ HS Finasteride [Proscar] 5 mg PO HS Atorvastatin [Lipitor] 80 mg PO HS Benzonatate [Tessalon Perles] 100 mg PO TID PRN PRN Reason: Cough Tiotropium 18 Mcg/Puff [Spiriva] 2 cap INHALATION RT-DAILY Albuterol Inhaler [Ventolin Hfa Inhaler] 2 puff INHALATION RT-Q4H PRN PRN Reason: Shortness Of Breath Cholecalciferol [Vitamin D3] 400 unit PO DAILY Multivit-Min/FA/Lycopen/Lutein [Centrum Silver Tablet] 1 tab PO DAILY Galantamine HBr [Razadyne ER] 24 mg PO W/BRKFST Aspirin EC [Ecotrin Low Dose] 81 mg PO DAILY Vit C/E/Zn/Coppr/Lutein/Zeaxan [Preservision Areds 2 Softgel] 1 cap PO BID Verapamil [Isoptin] 40 mg PO TID #90 tab Discontinued Enoxaparin [Lovenox] 80 mg SQ Q12H Discharge Medication List Atorvastatin [Lipitor] 80 mg PO HS 05/08/17 [History] Finasteride [Proscar] 5 mg PO HS 05/08/17 [History] Insulin Glargine,Hum.rec.anlog [Lantus Solostar] 36 unit SQ HS 05/08/17 [History] Albuterol Inhaler [Ventolin Hfa Inhaler] 2 puff INHALATION RT-Q4H PRN 04/27/20 [History] Aspirin EC [Ecotrin Low Dose] 81 mg PO DAILY 04/27/20 [History] Benzonatate [Tessalon Perles] 100 mg PO TID PRN 04/27/20 [History] Cholecalciferol [Vitamin D3] 400 unit PO DAILY 04/27/20 [History] Galantamine HBr [Razadyne ER] 24 mg PO W/BRKFST 04/27/20 [History] Multivit-Min/FA/Lycopen/Lutein [Centrum Silver Tablet] 1 tab PO DAILY 04/27/20 [History] Tiotropium 18 Mcg/Puff [Spiriva] 2 cap INHALATION RT-DAILY 04/27/20 [History] Vit C/E/Zn/Coppr/Lutein/Zeaxan [Preservision Areds 2 Softgel] 1 cap PO BID 04/27/20 [History] Verapamil [Isoptin] 40 mg PO TID #90 tab 04/28/20 [Rx] Follow up Appointment(s)/Referral(s): Nonstaff,Physician [Primary Care Provider] - 1-2 days [facility] Visiting Nurse, [NON-STAFF] - Activity/Diet/Wound Care/Special Instructions: Patient needs a bedside commode for discharge as he is room confined secondary to weakness from lung cancer
[2020-05-03 15:37] VITALS: BP 139/70; PULSE 91
[2020-05-03 16:42] LABS: Glucose,Whole Blood 127 mg/dL (75-99)
--- NOTE | 2020-05-03 18:34 | P.PN ---
Subjective Progress Note Date: 05/03/20 Principal diagnosis: PE, severe left hip hematoma. History of lung cancer. In follow-up today patient is pleasant, denies any pain, fevers, difficulty in breathing, nausea, he is tolerating oral intake, no chest pains, palpitations, no pain in his legs. Objective - Vital Signs Vital signs: Vital Signs Temp 97.7 F 05/03/20 11:20 Pulse 91 05/03/20 15:36 Resp 20 05/03/20 11:20 BP 139/70 05/03/20 15:36 Pulse Ox 96 05/03/20 15:36 Intake & Output 05/02/20 05/03/20 05/03/20 18:59 06:59 18:59 Intake Total 420 600 Output Total 100 550 250 Balance 320 -550 350 Weight 85 kg Intake: Oral 420 600 Output: Urine 100 550 250 Other: Voiding Method Diaper Urinal Urinal Incontinent Diaper Diaper Incontinent Incontinent # Voids 1 2 # Bowel Movements 1 1 - Constitutional General appearance: Present: average body habitus, cooperative, no acute distress - EENT Eyes: Present: anicteric sclerae, EOMI ENT: Present: hearing grossly normal - Respiratory Respiratory: bilateral: diminished - Cardiovascular Heart sounds: normal: S1, S2 - Peripheral edema leg Peripheral Edema: bilateral: None - Gastrointestinal General gastrointestinal: Present: normal bowel sounds, soft - Integumentary Integumentary: Present: pale - Neurologic Neurologic: Present: CNII-XII intact - Musculoskeletal Musculoskeletal: Present: generalized weakness - Psychiatric Psychiatric: Present: A&O x's 3, appropriate affect - Labs CBC & Chem 7: 05/03/20 06:24 05/03/20 06:24 Labs: Abnormal Lab Results - Last 24 Hours (Table) 05/02/20 05/03/20 05/03/20 Range/Units 19:56 06:15 06:24 RBC 3.06 L (4.30-5.90) m/uL Hgb 9.4 L (13.0-17.5) gm/dL Hct 28.4 L (39.0-53.0) % RDW 18.2 H (11.5-15.5) % Lymphocytes # 0.6 L (1.0-4.8) k/uL Chloride (98-107) mmol/L Glucose (74-99) mg/dL POC Glucose (mg/dL) 150 H 111 H (75-99) mg/dL Calcium (8.4-10.2) mg/dL 05/03/20 05/03/20 05/03/20 Range/Units 06:24 11:48 16:40 RBC (4.30-5.90) m/uL Hgb (13.0-17.5) gm/dL Hct (39.0-53.0) % RDW (11.5-15.5) % Lymphocytes # (1.0-4.8) k/uL Chloride 108 H (98-107) mmol/L Glucose 103 H (74-99) mg/dL POC Glucose (mg/dL) 122 H 127 H (75-99) mg/dL Calcium 7.3 L (8.4-10.2) mg/dL Assessment and Plan (1) Lung cancer Narrative/Plan: Patient will return to [facility] for plan of care regarding his lung cancer. Current Visit: Yes Status: Chronic Priority: Medium Code(s): C34.90 - MALIGNANT NEOPLASM OF UNSP PART OF UNSP BRONCHUS OR LUNG SNOMED Code(s): 864136383 (2) Pulmonary embolism Narrative/Plan: Per the chart diagnosed just last month with PE. Baseline bilateral lower extremity Doppler did reveal a right lower extremity DVT. When talking to patient today he did admit that he may have fallen. The significant bruising on his left hip/thigh/buttock area could certainly be the reasoning for his 3+ g drop in hemoglobin. Despite new clot anticoagulation contraindicated at this time with acute bleeding. Hgb is now at least stable. Patient does have IVC filter. Patient needs to return to the [facility] with this information so that they can decide the appropriate time to resume him on anticoagulation. Current Visit: Yes Status: Acute Priority: High Code(s): I26.99 - OTHER PULMONARY EMBOLISM WITHOUT ACUTE COR PULMONALE SNOMED Code(s): 97882369
== END 2020-05-03 17:38 | disposition home health service (06) | DRG 555 ==
LOC: EC 12:25 → 3SCARD 13:49
PROVIDERS: ADMIT Internal Medicine; ATTEND Internal Medicine
PROC: B5191ZZ Fluoroscopy of Inferior Vena Cava using Low Osmolar Contrast (ICD-10-PCS; principal; 2020-04-30 13:15)
PROC: 06H03DZ Insertion of Intraluminal Device into Inferior Vena Cava, Percutaneous Approach (ICD-10-PCS; principal; 2020-04-30 13:15)
PROC: B5181ZZ Fluoroscopy of Superior Vena Cava using Low Osmolar Contrast (ICD-10-PCS; principal; 2020-04-30 13:15)
DX: M79.81 Nontraumatic hematoma of soft tissue (principal); I26.99 Other pulmonary embolism without acute cor pulmonale; C34.90 Malignant neoplasm of unspecified part of unspecified bronchus or lung; C78.7 Secondary malignant neoplasm of liver and intrahepatic bile duct; C79.31 Secondary malignant neoplasm of brain; D62 Acute posthemorrhagic anemia; I47.1 Supraventricular tachycardia; E11.40 Type 2 diabetes mellitus with diabetic neuropathy, unspecified; J44.9 Chronic obstructive pulmonary disease, unspecified; I77.810 Thoracic aortic ectasia; Z79.4 Long term (current) use of insulin; E78.5 Hyperlipidemia, unspecified; I10 Essential (primary) hypertension; M17.10 Unilateral primary osteoarthritis, unspecified knee; E66.9 Obesity, unspecified; G31.84 Mild cognitive impairment of uncertain or unknown etiology; K58.9 Irritable bowel syndrome, unspecified; L57.0 Actinic keratosis; R01.1 Cardiac murmur, unspecified; M16.12 Unilateral primary osteoarthritis, left hip; R32 Unspecified urinary incontinence; S00.93XA Contusion of unspecified part of head, initial encounter; W22.8XXA Striking against or struck by other objects, initial encounter; Y92.239 Unspecified place in hospital as the place of occurrence of the external cause; Z79.01 Long term (current) use of anticoagulants; Z79.82 Long term (current) use of aspirin; Z79.899 Other long term (current) drug therapy; Z88.8 Allergy status to other drugs, medicaments and biological substances; Z87.891 Personal history of nicotine dependence; Z87.01 Personal history of pneumonia (recurrent); Z86.73 Personal history of transient ischemic attack (TIA), and cerebral infarction without residual deficits; Z86.006 Personal history of melanoma in-situ; Z85.828 Personal history of other malignant neoplasm of skin; Z98.42 Cataract extraction status, left eye; Z98.41 Cataract extraction status, right eye; Z92.3 Personal history of irradiation; Z86.19 Personal history of other infectious and parasitic diseases; Z82.49 Family history of ischemic heart disease and other diseases of the circulatory system; Z82.3 Family history of stroke
CPT/HCPCS: 36415; 37191; 70450; 71046; 80048; 80053; 80061; 83735; 83880; 84484; 85025; 85027; 85610; 85730; 93005; 93970; 94640; 96360; 99285